=== PATIENT | male | born 1965 | race Asian ===

== ENCOUNTER 2019-12-31 20:29 | Inpatient (IN) | payer MEDICAID ==
[~2019-12-31] VITALS: Ht 170.2 cm; Wt 74.8 kg
--- NOTE | 2019-12-31 21:11 | Emergency Room Report ---
History of Present Illness General Chief Complaint: Fever Source: Patient, Medical Record Present Illness HPI This a 54-year-old male with a history of high blood pressure and CVA. He has residual weakness from the CVA. He resides in a shelter. He presents with complaint of fever with nausea and vomiting. Onset today. Patient denies any pain. Said that he has gas. Patient also history of high blood pressure was given hydralazine prior to arrival. No diarrhea. No cough or congestion. Allergies: Coded Allergies: No Known Allergies (Unverified , 12/31/19) Patient History Past Medical History: see triage record, old chart reviewed, HTN, CVA/TIA Past Surgical History: other Pertinent Family History: none Social History: Denies: smoking Immunizations: other Reviewed Nursing Documentation: PMH: Agreed; PSxH: Agreed Review of Systems Constitutional: Reports: fever Eye: Denies: eye pain, blurred vision ENT: Denies: ear pain, nose congestion, throat swelling Respiratory: Denies: cough, shortness of breath Cardiovascular: Denies: chest pain, palpitations Gastrointestinal: Reports: nausea, vomiting Musculoskeletal: Denies: back pain, joint pain Skin: Denies: rash Neurological: Denies: headache, numbness Endocrine: Denies: increased thirst, increased urine Hematologic/Lymphatic: Denies: easy bruising All Other Systems: negative except mentioned in HPI Physical Exam Vital Signs Date Time Temp Pulse Resp B/P (MAP) Pulse Ox O2 Delivery O2 Flow Rate FiO2 12/31/19 20:32 99.3 90 16 144/88 (106) 97 Nasal Cannula 2.0 Vitals with low-grade fever Sp02 EP Interpretation: reviewed, normal General Appearance: well appearing, no apparent distress, alert Head: normocephalic, atraumatic Eyes: bilateral eye PERRL, bilateral eye EOMI ENT: hearing grossly normal, normal pharynx Neck: full range of motion, supple, no meningismus Respiratory: chest non-tender, decreased breath sounds, rhonchi Cardiovascular #1: regular rate, rhythm, no murmur Gastrointestinal: non tender, no mass, no organomegaly, no bruit, other - Distended, decreased bowel sounds Musculoskeletal: back normal Neurologic: alert, other - Right-sided weakness, chronic Psychiatric: mood/affect normal Medical Decision Making Diagnostic Impression: Primary Impression: UTI (urinary tract infection) Qualified Codes: N30.00 - Acute cystitis without hematuria Additional Impression: Ureteral calculus, right ER Course This patient presents with fever and with nausea and vomiting. Labs show a leukocytosis. CT scan showed a right obstructing ureteral stone with hydronephrosis. Urinalysis showed possible UTI. Because of this, will admit for IV antibiotics and urology consultation. I discussed case with Dr. Moss was covering for Dr. Rodrigues. He asked that we paged urology basket person. When we try to call Dr. Sidhu for urology, answering service is full. I was asked then to contact Dr. Layton. EKG Diagnostic Results Rate: normal Rhythm: NSR ST Segments: no acute changes Rhythm Strip Diag. Results EP Interpretation: yes Rate: 85 Rhythm: NSR, no PVC's Chest X-Ray Diagnostic Results Chest X-Ray Diagnostic Results : Chest X-Ray Ordered: Yes # of Views/Limited/Complete: 1 View Indication: Shortness of Breath EP Interpretation: Yes Interpretation: no consolidation, no effusion, no pneumothorax, other - CM with atelectasis Impression: Other - atelectasis Electronically Signed by: Mir Mejia MD CT/MRI/US Diagnostic Results CT/MRI/US Diagnostic Results : Imaging Test Ordered: CT abdomen pelvis Impression Read by radiologist. Mild right hydronephrosis secondary to 9 mm stone in the proximal ureter. Last Vital Signs Date Time Temp Pulse Resp B/P (MAP) Pulse Ox O2 Delivery O2 Flow Rate FiO2 12/31/19 20:32 99.3 90 16 144/88 (106) 97 Nasal Cannula 2.0 Disposition: ADMITTED INPATIENT Condition: Serious Mir Mejia MD Dec 31, 2019 21:11
[2019-12-31] MEDS ORDERED: Sodium Chloride 2,200 ML IVLG ONE (21:15)
[2019-12-31 22:01] LABS: HEMATOCRIT 37.7 % (42.0-52.0); HEMOGLOBIN 11.7 G/DL (14.2-18.0); MEAN CORPUSCULAR VOLUME 62 FL (80-99); PLATELET COUNT 454 K/UL (150-450); RED BLOOD COUNT 6.07 M/UL (4.70-6.10); RED CELL DISTRIBUTION WIDTH 14.6 % (11.6-14.8); WHITE BLOOD COUNT 19.6 K/UL (4.8-10.8)
[2019-12-31 22:11] VITALS: BP 144/88
--- NOTE | 2019-12-31 22:11 | Diagnostic Imaging Report ---
Indication: Abdominal pain Technique: Spiral acquisitions obtained through the abdomen and pelvis. No oral or IV contrast utilized, per urinary stone protocol. Multiplanar reconstructions were generated. Total dose length product 422 mGycm. CTDIvol(s) 6 mGy. Dose reduction achieved using automated exposure control Comparison: none Findings: There is a 12 mm calculus at the right ureteral pelvic junction. This results in mild hydronephrosis and mild perinephric fat stranding. There is also a 3 mm calculus in an upper pole calyx. There are tiny calyceal calculi in the lower pole of left kidney. No left ureteral calculi, hydronephrosis, or hydroureter demonstrated. Lack of IV contrast limits assessment of the renal parenchyma. No gross renal parenchymal mass or cyst demonstrated. The bladder is normal. Unremarkable prostate. Lack of IV contrast limits assessment of the solid organs. The liver is diffusely hypoattenuating, consistent with fatty change. No focal abnormality. The gallbladder is nondistended. There are questionably one or more small gallstones. No biliary ductal dilatation. The pancreas, spleen, adrenals are unremarkable. No retroperitoneal or mesenteric mass or adenopathy. No pelvic mass or adenopathy. There is what appears to be a gastrostomy tube tract. The distal esophagus and duodenum are unremarkable. No small bowel distention. No free or loculated intraperitoneal gas or fluid is evident. No evidence of colonic diverticulosis or diverticulitis. The appendix is normal. The included lung bases demonstrate some atelectatic changes. The bones are unremarkable. Impression: Positive for 12 mm right proximal ureteral calculus. This results in mild hydronephrosis and mild perinephric fat stranding Bilateral nonobstructive intrarenal calculi Fatty liver Very questionable cholelithiasis Gastrostomy tube tract incidentally noted Basilar atelectasis This agrees with the preliminary interpretation provided overnight by [facility] teleradiology service, with minor variations. The CT scanner at [facility] is accredited by the [employer] and the scans are performed using protocols designed to limit radiation exposure to as low as reasonably achievable to attain images of sufficient resolution adequate for diagnostic evaluation.
[2019-12-31 22:14] LABS: ANION GAP 13 mmol/L (5-15); BLOOD UREA NITROGEN 23 mg/dL (7-18); CALCIUM 9.1 MG/DL (8.5-10.1); CARBON DIOXIDE 25 MMOL/L (21-32); CHLORIDE 105 MMOL/L (98-107); CREATININE 1.3 MG/DL (0.55-1.30); POTASSIUM 3.3 MMOL/L (3.5-5.1); SODIUM 143 MMOL/L (136-145)
[2019-12-31 22:27] LABS: APPEARANCE,URINE CLEAR; BILIRUBIN, URINE NEGATIVE (NEGATIVE); GLUCOSE, URINE (UA) NEGATIVE (NEGATIVE); KETONES,URINE NEGATIVE (NEGATIVE); LEUKOCYTE ESTERASE ,URINE 2+ (NEGATIVE); NITRITE,URINE NEGATIVE (NEGATIVE); PH,URINE 7 (4.5-8.0); PROTEIN,URINE 2+ (NEGATIVE); UROBILINOGEN,URINE 1 MG/DL (0.0-1.0)
[2019-12-31 22:28] LABS: ALANINE AMINOTRANSFERASE 65 U/L (12-78); ALBUMIN/GLOBULIN RATIO 0.6 (1.0-2.7); ALKALINE PHOSPHATASE 100 U/L (46-116); ASPARTATE AMINO TRANSFERASE 21 U/L (15-37); BILIRUBIN,TOTAL 1.5 MG/DL (0.2-1.0); CKMB < 0.5 NG/ML (0.0-3.6); CREATINE KINASE 19 U/L (26-308)
[2019-12-31 22:30] LABS: BILIRUBIN,DIRECT 0.4 MG/DL (0.0-0.3)
[2019-12-31 22:31] LABS: COLOR,URINE YELLOW
[2019-12-31] MEDS ORDERED: Cefepime HCl 1 GM in D5W 55 ML IVPB ONE (22:45)
[2019-12-31] MEDS ORDERED: BISACODYL5 MG RECTAL (23:16)
[2019-12-31] MEDS ORDERED: FLOMAX0.4 MG ORAL (23:16)
[2019-12-31] MEDS ORDERED: FERROUS SULFAT325 MG ORAL (23:16)
[2019-12-31] MEDS ORDERED: FISH OIL 1,0001 EAC1 ORAL (23:16)
[2020-01-01] MEDS ORDERED: HydrALAZINE 25mg tab ORAL PRN (00:15)
[2020-01-01] MEDS ORDERED: Morphine Sulfate 2mg/ml Inj(IV/IM USE ONLY) IVP PRN (00:15)
[2020-01-01] MEDS ORDERED: ALBUTEROL2.5 MG/3 M INH (00:16)
[2020-01-01] MEDS ORDERED: ASPIR 8181 MG ORAL (00:16)
[2020-01-01] MEDS ORDERED: ATORVASTATIN CA40 MG ORAL (00:17)
[2020-01-01] MEDS ORDERED: MIRALAX17 G2 ORAL (00:18)
[2020-01-01] MEDS ORDERED: MILK OF MA400 MG/51 ORAL (00:18)
[2020-01-01] MEDS ORDERED: CHILDREN'S160 MG/56 ORAL (00:22)
[2020-01-01] MEDS ORDERED: SENNA8.6 M2 PO (00:22)
[2020-01-01] MEDS ORDERED: PERIDEX15 ML MM (00:22)
[2020-01-01] MEDS ORDERED: TYLENOL325 MG ORAL (00:22)
[2020-01-01] MEDS ORDERED: PLAVIX75 MG ORAL (00:22)
[2020-01-01] MEDS ORDERED: PROTONIX40 MG ORAL (00:22)
[2020-01-01] MEDS ORDERED: ACETAMINOP160 MG/5 M ORAL (00:23)
[2020-01-01] MEDS ORDERED: ASCORBIC ACID500 MG ORAL (00:24)
[2020-01-01] MEDS ORDERED: ZOFRAN4 M3 ORAL (00:24)
[2020-01-01 00:42] VITALS: BP 133/80
[2020-01-01] MEDS ORDERED: cefTRIAXone 1 GM in D5W 55 ML IVPB SCH (01:45)
[2020-01-01 04:00] VITALS: BP 105/67
[2020-01-01 04:27] VITALS: BP 115/69
[2020-01-01] MEDS: cefTRIAXone 1 GM in D5W 55 ML IVPB SCH (08:17)
[2020-01-01] MEDS: Enoxaparin 40mg Inj SUBQ SCH (08:22)
--- NOTE | 2020-01-01 11:27 | Diagnostic Imaging Report ---
Indication: Shortness of breath Technique: One view of the chest Comparison: none Findings: There is equivocal mild interstitial congestive change. The heart is borderline enlarged. The aorta is tortuous and calcified. Impression: Equivocal mild interstitial congestion Borderline cardiomegaly
[2020-01-01 12:00] VITALS: BP 114/70
--- NOTE | 2020-01-01 14:20 | Infectious Diseases Prog Note ---
Subjective Allergies: Coded Allergies: No Known Allergies (Unverified , 12/31/19) Subjective # [id number] Objective Vital Signs Last 24 Hour Vital Signs Date Time Temp Pulse Resp B/P (MAP) Pulse Ox O2 Delivery O2 Flow Rate FiO2 01/01/20 12:00 99.4 97 24 114/70 (85) 96 01/01/20 09:00 Nasal Cannula 2.0 01/01/20 06:56 97.6 01/01/20 04:27 101.1 107 22 115/69 (84) 96 01/01/20 04:00 100.6 114 22 105/67 (80) 91 01/01/20 03:07 102.2 01/01/20 01:07 Nasal Cannula 2.0 01/01/20 00:42 104.0 104 20 133/80 (97) 95 01/01/20 00:35 99.3 87 18 137/87 100 Nasal Cannula 2.0 12/31/19 22:11 90 16 Nasal Cannula 2.0 12/31/19 22:11 99.3 90 16 144/88 97 Nasal Cannula 2.0 12/31/19 20:32 99.3 90 16 144/88 (106) 97 Nasal Cannula 2.0 Height (Feet): 5 Height (Inches): 7.00 Weight (Pounds): 163 Microbiology Date/Time Source Procedure Growth Status 12/31/19 21:30 Nasal Nares - Final Complete 12/31/19 21:30 Nasal Nares - Final Complete Laboratory Tests Test 12/31/19 21:30 12/31/19 22:02 White Blood Count 19.6 K/UL (4.8-10.8) H Red Blood Count 6.07 M/UL (4.70-6.10) Hemoglobin 11.7 G/DL (14.2-18.0) L Hematocrit 37.7 % (42.0-52.0) L Mean Corpuscular Volume 62 FL (80-99) L Mean Corpuscular Hemoglobin 19.3 PG (27.0-31.0) L Mean Corpuscular Hemoglobin Concent 31.0 G/DL (32.0-36.0) L Red Cell Distribution Width 14.6 % (11.6-14.8) Platelet Count 454 K/UL (150-450) H Mean Platelet Volume 8.3 FL (6.5-10.1) Neutrophils (%) (Auto) % (45.0-75.0) Lymphocytes (%) (Auto) % (20.0-45.0) Monocytes (%) (Auto) % (1.0-10.0) Eosinophils (%) (Auto) % (0.0-3.0) Basophils (%) (Auto) % (0.0-2.0) Differential Total Cells Counted 100 Neutrophils % (Manual) 80 % (45-75) H Lymphocytes % (Manual) 9 % (20-45) L Monocytes % (Manual) 5 % (1-10) Eosinophils % (Manual) 0 % (0-3) Basophils % (Manual) 1 % (0-2) Band Neutrophils 5 % (0-8) Platelet Estimate Increased H Platelet Morphology Normal Hypochromasia 1+ Anisocytosis 1+ Sodium Level 143 MMOL/L (136-145) Potassium Level 3.3 MMOL/L (3.5-5.1) L Chloride Level 105 MMOL/L (98-107) Carbon Dioxide Level 25 MMOL/L (21-32) Anion Gap 13 mmol/L (5-15) Blood Urea Nitrogen 23 mg/dL (7-18) H Creatinine 1.3 MG/DL (0.55-1.30) Estimat Glomerular Filtration Rate 57.1 mL/min (>60) Glucose Level 140 MG/DL (74-106) H Lactic Acid Level 1.10 mmol/L (0.4-2.0) Calcium Level 9.1 MG/DL (8.5-10.1) Total Bilirubin 1.5 MG/DL (0.2-1.0) H Direct Bilirubin 0.4 MG/DL (0.0-0.3) H Aspartate Amino Transf (AST/SGOT) 21 U/L (15-37) Alanine Aminotransferase (ALT/SGPT) 65 U/L (12-78) Alkaline Phosphatase 100 U/L (46-116) Total Creatine Kinase 19 U/L (26-308) L Creatine Kinase MB < 0.5 NG/ML (0.0-3.6) Creatine Kinase MB Relative Index 2.6 Troponin I 0.000 ng/mL (0.000-0.056) Total Protein 7.7 G/DL (6.4-8.2) Albumin 3.0 G/DL (3.4-5.0) L Globulin 4.7 g/dL Albumin/Globulin Ratio 0.6 (1.0-2.7) L Urine Color Yellow Urine Appearance Clear Urine pH 7 (4.5-8.0) Urine Specific [employer] 1.010 (1.005-1.035) Urine Protein 2+ (NEGATIVE) H Urine Glucose (UA) Negative (NEGATIVE) Urine Ketones Negative (NEGATIVE) Urine Blood 1+ (NEGATIVE) H Urine Nitrite Negative (NEGATIVE) Urine Bilirubin Negative (NEGATIVE) Urine Urobilinogen 1 MG/DL (0.0-1.0) H Urine Leukocyte Esterase 2+ (NEGATIVE) H Urine RBC 2-4 /HPF (0 - 0) H Urine WBC 5-10 /HPF (0 - 0) H Urine Squamous Epithelial Cells None /LPF (NONE/OCC) Urine Bacteria Few /HPF (NONE) Current Medications Medications (Trade) Dose Ordered Sig/Coy Route PRN Reason Start Time Stop Time Status Last Admin Dose Admin Acetaminophen (Tylenol) 650 mg Q4H PRN ORAL Mild Pain (Pain Scale 1-3) 01/01/20 00:15 01/31/20 00:14 Acetaminophen (Tylenol) 650 mg Q4H PRN ORAL Temp > 100.5 01/01/20 01:45 01/31/20 01:44 01/01/20 01:59 Bisacodyl (Dulcolax) 10 mg HSPRN PRN RECTAL Constipation 01/01/20 00:15 01/31/20 00:14 Ceftriaxone Sodium 1 gm/ Dextrose 55 ml @ 110 mls/hr Q24H IVPB 01/01/20 09:00 01/08/20 01:44 01/01/20 08:17 Dextrose (Dextrose 50%) 25 ml Q30M PRN IV Hypoglycemia 01/01/20 00:15 01/31/20 00:14 Dextrose (Dextrose 50%) 50 ml Q30M PRN IV Hypoglycemia 01/01/20 00:15 01/31/20 00:14 Enoxaparin Sodium (Lovenox) 40 mg DAILY SUBQ 01/01/20 09:00 01/31/20 08:59 01/01/20 08:22 Famotidine (Pepcid) 40 mg DAILY ORAL 01/01/20 09:00 01/31/20 08:59 Hydralazine HCl (Apresoline) 25 mg Q3HR PRN ORAL For High Blood Pressure 01/01/20 00:15 01/31/20 00:14 Morphine Sulfate (Morphine Sulfate) 1 mg Q3HR PRN IVP For Pain 01/01/20 00:15 01/08/20 00:14 Ondansetron HCl (Zofran) 4 mg Q6H PRN IVP Nausea & Vomiting 01/01/20 00:15 01/31/20 00:14 Sodium Chloride 1,000 ml @ 75 mls/hr [id number] IV 01/01/20 00:15 01/31/20 00:14 01/01/20 11:30 Mayur Womack MD Jan 01, 2020 14:20
[2020-01-01 16:00] VITALS: BP 120/73
--- NOTE | 2020-01-01 16:45 | History and Physical Report ---
DATE OF ADMISSION: 12/31/2019 REASON FOR ADMISSION: Nausea, vomiting. HISTORY OF PRESENT ILLNESS: The patient is a 54-year-old gentleman who presented from his [facility] facility for evaluation of nausea and vomiting with febrile episode. CT of the abdomen and pelvis did demonstrate 12 mm right proximal ureteral calculus, mid hydronephrosis with mild perinephric fat stranding, and also had bilateral nonobstructive intrarenal calculi. In the emergency room, Urology was consulted for further evaluation and management and the patient was initiated on IV antibiotics. ALLERGIES: No known drug allergies. PAST MEDICAL HISTORY: 1. Hypertension. 2. CVA. PAST SURGICAL HISTORY: Noncontributory. FAMILY HISTORY: Positive for hypertension SOCIAL HISTORY: No tobacco, alcohol, or illicit drug use. REVIEW OF SYSTEMS: NEUROLOGIC: The patient denies headache, change in vision, syncope, presyncopal episodes. CARDIOVASCULAR: No current chest pain, palpitations, angina. PULMONARY: No difficulty breathing, productive cough or sputum. GASTROINTESTINAL/GENITOURINARY: The patient is having nausea and vomiting. No diarrhea. ENDOCRINOLOGY: The patient was having night sweats and fevers. MUSCULOSKELETAL: The patient is feeling tired and fatigued. LABORATORY DATA: Labs dated 12/31/2019, white cell count 19.6, hemoglobin 11.7. Sodium 143, potassium 3.3, creatinine 1.3. PHYSICAL EXAMINATION: VITAL SIGNS: Blood pressure 115/69, respiratory 22, pulse 107, temperature 101.1, and 96% oxygen saturation on room air. GENERAL: The patient is awake, in no overt distress. HEENT: Extraocular muscles intact. No lymphadenopathy noted. CARDIOVASCULAR: S1, S2. No rubs or gallops. PULMONARY: Clear to auscultation bilaterally. No rales, rhonchi or wheezes. ABDOMEN: Nondistended and nontender. EXTREMITIES: No edema. ASSESSMENT AND PLAN: 1. Sepsis secondary to underlying urinary tract infection with a 12 mm right proximal ureteral calculus. This will intervened upon along with IV antibiotics. Infectious Disease and Neurology have been consulted. Awaiting further evaluation and management. 2. UTI. We will continue IV antibiotics until Infectious Disease suggest as deemed appropriate. The patient does have a 12 mm right proximal ureteral calculus causing mid hydronephrosis. 3. Right-sided mid hydroureteronephrosis. Urology to evaluate the patient. 4. Hypertension. We will continue to monitor the patient carefully. Adjust medications as deemed appropriate. 5. DVT prophylaxis with Lovenox. 6. GI prophylaxis with famotidine. Bird Nagy MD DR: BRIGITTE JOB#: [id number] CC:
[2020-01-01 20:00] VITALS: BP 99/64
--- NOTE | 2020-01-01 22:00 | Consultation ---
DATE OF CONSULTATION: 01/01/2020 INFECTIOUS DISEASE CONSULTATION CONSULTING PHYSICIAN: Mayur Womack M.D. REFERRING PHYSICIAN: . REASON FOR CONSULTATION: Evaluation of the patient for urinary tract infection, sepsis, antibiotic management. HISTORY OF PRESENT ILLNESS: The patient is a 54-year-old male with past medical significant for CVA and hypertension, who was admitted to this medical center from [facility] due to fever, nausea, and vomiting. Workup was suggesting urinary tract infection. Infectious Disease consultation has been requested for further evaluation of the patient and antibiotic management. PAST MEDICAL HISTORY: 1. CVA. 2. Hypertension. 3. History of esophageal ulcer. 4. BPH. 5. GERD. ALLERGIES: No known drug allergies. SOCIAL HISTORY: The patient lives in a intermediate. FAMILY HISTORY: Not contributing. REVIEW OF SYSTEMS: A 10-point was done, except what has been mentioned above is negative. MEDICATIONS: The patient is on IV Rocephin. PHYSICAL EXAMINATION: VITAL SIGNS: Temperature at the time of admission, blood pressure 114/78, pulse 97, respiratory rate 24. HEENT: No pale conjunctivae. No icterus. NECK: No lymphadenopathy. CHEST: Clear. HEART: S1, S2. ABDOMEN: Soft. The patient has right flank tenderness. NEUROLOGIC: Awake, alert. SKIN: No rash. LABORATORY DATA: White blood cell 19, hemoglobin 11, platelets 454,000. UA unremarkable. BUN 22, creatinine 1.3. AST, ALT, alkaline phosphatase unremarkable. CT scan of the abdomen showed right proximal ureteral calculus, mild hydronephrosis, mild perinephric fat stranding, bilateral nonobstructive intrarenal calculi, fatty liver. Chest x-ray, interstitial congestion and cardiomegaly. ASSESSMENT: The patient is a 54-year-old male with: 1. Fever. 2. Leukocytosis. 3. Probable UTI. 4. Pyelonephritis. 5. Renal stone. PLAN: 1. We will continue the patient on IV Rocephin day #1. 2. Monitor cultures (blood, urine). 3. Monitor CBC and BMP. 4. Monitor the patient's clinical course. 5. Recommend Urology evaluation. 6. Based on the above, we will do further recommendation. Mayur Womack M.D. DR: DOLORES JOB#: [id number] CC:
[2020-01-02] VITALS (14 sets, daily range): BP systolic 88–149; BP diastolic 50–80
[2020-01-02 07:07] LABS: HEMATOCRIT 30.4 % (42.0-52.0); HEMOGLOBIN 9.5 G/DL (14.2-18.0); MEAN CORPUSCULAR VOLUME 63 FL (80-99); PLATELET COUNT 305 K/UL (150-450); RED BLOOD COUNT 4.81 M/UL (4.70-6.10); RED CELL DISTRIBUTION WIDTH 12.3 % (11.6-14.8); WHITE BLOOD COUNT 18.2 K/UL (4.8-10.8)
[2020-01-02 07:35] LABS: ANION GAP 14 mmol/L (5-15); BLOOD UREA NITROGEN 25 mg/dL (7-18); CALCIUM 8.3 MG/DL (8.5-10.1); CARBON DIOXIDE 22 MMOL/L (21-32); CHLORIDE 110 MMOL/L (98-107); CREATININE 1.6 MG/DL (0.55-1.30); POTASSIUM 3.5 MMOL/L (3.5-5.1); SODIUM 146 MMOL/L (136-145)
[2020-01-02] MEDS: cefTRIAXone 1 GM in D5W 55 ML IVPB SCH (08:16)
[2020-01-02] MEDS: Enoxaparin 40mg Inj SUBQ SCH (08:21)
[2020-01-02] MEDS ORDERED: ceFAZolin sod 2 GM in D5W 110 ML IVPB SCH (08:30)
[2020-01-02] MEDS ORDERED: Iothalamate Meglumine 60% 50ML INJ ONE (08:50)
--- NOTE | 2020-01-02 08:52 | Nephrology Progress Note ---
Assessment/Plan Assessment/Plan: A/P 1) Sepsis- mid ureteral stone - lithotripsy today - continue Abx 2) CHELSEA on CKD 3B- due to sepsis - continue IVFs and Abx - lithotripsy today 3) HTN- stable, PRN hydralazine Subjective Date patient seen: Jan 02, 2020 Time patient seen: 08:47 ROS Limited/Unobtainable: No Allergies: Coded Allergies: No Known Allergies (Unverified , 12/31/19) Subjective Patient NPO for lithotripsy Objective Last 24 Hour Vital Signs Date Time Temp Pulse Resp B/P (MAP) Pulse Ox O2 Delivery O2 Flow Rate FiO2 01/02/20 04:00 100.2 93 24 118/73 (88) 96 01/02/20 00:00 99.9 85 24 149/80 (103) 96 01/01/20 21:00 Nasal Cannula 2.0 01/01/20 20:00 99.0 84 18 99/64 (76) 96 01/01/20 16:00 98.9 100 22 120/73 (89) 97 01/01/20 12:00 99.4 97 24 114/70 (85) 96 01/01/20 09:00 Nasal Cannula 2.0 Intake and Output 01/01/20 01/02/20 19:00 07:00 Intake Total 1680 ml 750 ml Output Total 800 ml Balance 880 ml 750 ml Intake Oral 800 ml IV Total 880 ml 750 ml Output Urine Total 800 ml # Voids 2 Laboratory Tests 01/02/20 06:07: White Blood Count 18.2H, Red Blood Count 4.81, Hemoglobin 9.5L, Hematocrit 30.4L , Mean Corpuscular Volume 63L, Mean Corpuscular Hemoglobin 19.7L, Mean Corpuscular Hemoglobin Concent 31.2L, Red Cell Distribution Width 12.3, Platelet Count 305, Mean Platelet Volume 7.8, Neutrophils (%) (Auto) , Lymphocytes (%) (Auto) , Monocytes (%) (Auto) , Eosinophils (%) (Auto) , Basophils (%) (Auto) , Neutrophils % (Manual) [Pending], Lymphocytes % (Manual) [Pending], Platelet Estimate [Pending], Platelet Morphology [Pending], Sodium Level 146H, Potassium Level 3.5, Chloride Level 110H, Carbon Dioxide Level 22, Anion Gap 14, Blood Urea Nitrogen 25H, Creatinine 1.6H, Estimat Glomerular Filtration Rate 44.9, Glucose Level 98, Calcium Level 8.3L Height (Feet): 5 Height (Inches): 7.00 Weight (Pounds): 162 General Appearance: no apparent distress, alert EENT: normal ENT inspection Neck: normal alignment Cardiovascular: normal rate, regular rhythm Respiratory/Chest: lungs clear, normal breath sounds Abdomen: non tender, soft Edema: no edema noted Arm (L), no edema noted Arm (R), no edema noted Leg (L), no edema noted Leg (R), no edema noted Pedal (L), no edema noted Pedal (R), no edema noted Generalized Bird Nagy MD Jan 02, 2020 08:52
--- NOTE | 2020-01-02 09:12 | Pre-Procedure Note/Attestation ---
Pre-Procedure Note/Attestation Complete Prior to Procedure Planned Procedure: right Procedure Narrative: eswl rirs right Indications for Procedure Pre-Operative Diagnosis: stone right upj Attestation I attest that I discussed the nature of the procedure; its benefits; risks and complications; and alternatives (and the risks and benefits of such alternatives ), prior to the procedure, with the patient (or the patient's legal consumer sales representative). I attest that, if there was a reasonable possibility of needing a blood transfusion, the patient (or the patient's legal consumer sales representative) was given the [facility] standardized written summary, pursuant to the [place]mkar Jan Blood Safety Act ([place] Health and Safety Code # 1645, as amended). I attest that I re-evaluated the patient just prior to the surgery and that there has been no change in the patient's H&P, except as documented below: Tom Sidhu MD Jan 02, 2020 09:12
[2020-01-02] MEDS ORDERED: NS Irrig 4000ml IRRIG ONE (09:13)
[2020-01-02] MEDS ORDERED: Rocuronium Bromide 50mg/5ml Inj IV ONE (09:30)
[2020-01-02] MEDS ORDERED: LR 1000ml ONE (09:30)
[2020-01-02] MEDS ORDERED: Sterile Water Irrig 1000ml IRRIG ONE (09:30)
[2020-01-02] MEDS ORDERED: NS Irrig 1000ml ONE (09:30)
[2020-01-02] MEDS ORDERED: LR 1000ml 1,000 ML IVLG SCH (09:33)
--- NOTE | 2020-01-02 09:38 | Anethesia Preoperative Eval ---
Anesthesia Pre-op PMH/ROS General Date of Evaluation: Jan 02, 2020 Time of Evaluation: 09:32 Anesthesiologist: Kash ASA Score: ASA 3 Mallampati Score Class I : Soft palate, uvula, fauces, pillars visible Class II: Soft palate, uvula, fauces visible Class III: Soft palate, base of uvula visible Class IV: Only hard plate visible Mallampati Classification: Class III Surgeon: Thea Diagnosis: Abd Pain Surgical Procedure: ESWL, R Stent Placement Anesthesia History: none Family History: no anesthesia problems Allergies: Coded Allergies: No Known Allergies (Unverified , 12/31/19) Medications: see eMAR Patient NPO?: Yes NPO Date: Jan 02, 2020 NPO Time: 1700 Past Medical History Cardiovascular: Reports: HTN Gastrointestinal/Genitourinary: Reports: GERD, other - BPH, GI Ulcer Neurologic/Psychiatric: Reports: CVA Hematology/Immune: Reports: anemia, DVT Anesthesia Pre-op Phys. Exam Physician Exam Last Vital Signs Date Time Temp Pulse Resp B/P (MAP) Pulse Ox O2 Delivery O2 Flow Rate FiO2 01/02/20 08:00 98.2 83 23 110/80 (90) 96 01/01/20 21:00 Nasal Cannula 2.0 Constitutional: NAD Neurologic: CN 2-12 intact Cardiovascular: RRR Respiratory: CTA Gastrointestinal: S/NT/ND Airway Exam Mallampati Score: Class III MO: limited ROM: limited Teeth: missing, intact Anesthesia Pre-op A/P Labs Hematology Test 01/02/20 06:07 White Blood Count 18.2 K/UL (4.8-10.8) H Red Blood Count 4.81 M/UL (4.70-6.10) Hemoglobin 9.5 G/DL (14.2-18.0) L Hematocrit 30.4 % (42.0-52.0) L Mean Corpuscular Volume 63 FL (80-99) L Mean Corpuscular Hemoglobin 19.7 PG (27.0-31.0) L Mean Corpuscular Hemoglobin Concent 31.2 G/DL (32.0-36.0) L Red Cell Distribution Width 12.3 % (11.6-14.8) Platelet Count 305 K/UL (150-450) Mean Platelet Volume 7.8 FL (6.5-10.1) Neutrophils (%) (Auto) % (45.0-75.0) Lymphocytes (%) (Auto) % (20.0-45.0) Monocytes (%) (Auto) % (1.0-10.0) Eosinophils (%) (Auto) % (0.0-3.0) Basophils (%) (Auto) % (0.0-2.0) Neutrophils % (Manual) Pending Lymphocytes % (Manual) Pending Platelet Estimate Pending Platelet Morphology Pending Chemistry Test 01/02/20 06:07 Sodium Level 146 MMOL/L (136-145) H Potassium Level 3.5 MMOL/L (3.5-5.1) Chloride Level 110 MMOL/L (98-107) H Carbon Dioxide Level 22 MMOL/L (21-32) Anion Gap 14 mmol/L (5-15) Blood Urea Nitrogen 25 mg/dL (7-18) H Creatinine 1.6 MG/DL (0.55-1.30) H Estimat Glomerular Filtration Rate 44.9 mL/min (>60) Glucose Level 98 MG/DL (74-106) Calcium Level 8.3 MG/DL (8.5-10.1) L Risk Assessment & Plan Assessment: ASA 3 Plan: GA, SED, GlideScope Status Change Before Surgery: No Pre-Antibiotics Dru Gram Ancef IV Given Within 1 Hr of Incision: Yes Oskar Hewitt MD Jan 02, 2020 09:38
[2020-01-02] MEDS ORDERED: Lidocaine 1% MPF 10mg/ml 5ml ONE (09:39)
[2020-01-02] MEDS ORDERED: Propofol 200mg/20ml IV ONE (09:39)
--- NOTE | 2020-01-02 09:39 | Immediate Post-Op Evaluation ---
Immediate Post-Op Evalulation Immediate Post-Op Evalulation Procedure: ESWL, R Stent Placement Date of Evaluation: Jan 02, 2020 Time of Evaluation: 11:24 IV Fluids: 300 LR Blood Products: 0 Estimated Blood Loss: 10 Urinary Output: 200 Blood Pressure Systolic: 92 Blood Pressure Diastolic: 57 Pulse Rate: 95 Respiratory Rate: 16 O2 Sat by Pulse Oximetry: 100 Temperature (Fahrenheit): 99.9 Pain Score (1-10): 2 Nausea: No Vomiting: No Complications 0 Patient Status: awake, reacts, patent, extubated, none Hydration Status: adequate Dru gram Ancef IV Given Within 1 Hr of Incision: Yes Time Given: 09:51 Oskar Hewitt MD Jan 02, 2020 09:39
--- NOTE | 2020-01-02 09:44 | Infectious Diseases Prog Note ---
Assessment/Plan Assessment/Plan ASSESSMENT: The patient is a 54-year-old male with: Fever. Leukocytosis. Probable UTI -CT scan of the abdomen showed right proximal ureteral calculus, mild hydronephrosis, mild perinephric fat stranding, bilateral nonobstructive intrarenal calculi, fatty liver. Chest x-ray, interstitial congestion and cardiomegaly. Pyelonephritis. Renal stone CVA. Hypertension. History of esophageal ulcer. BPH. GERD. PLAN: Cont the patient on IV Rocephin day #2 Monitor cultures (blood, urine) Monitor CBC and BMP. Monitor the patient's clinical course Subjective Allergies: Coded Allergies: No Known Allergies (Unverified , 12/31/19) Subjective low grade fever Objective Vital Signs Last 24 Hour Vital Signs Date Time Temp Pulse Resp B/P (MAP) Pulse Ox O2 Delivery O2 Flow Rate FiO2 01/02/20 08:00 98.2 83 23 110/80 (90) 96 01/02/20 04:00 100.2 93 24 118/73 (88) 96 01/02/20 00:00 99.9 85 24 149/80 (103) 96 01/01/20 21:00 Nasal Cannula 2.0 01/01/20 20:00 99.0 84 18 99/64 (76) 96 01/01/20 16:00 98.9 100 22 120/73 (89) 97 01/01/20 12:00 99.4 97 24 114/70 (85) 96 Height (Feet): 5 Height (Inches): 7.00 Weight (Pounds): 162 HEENT: PERRL Respiratory/Chest: normal breath sounds Cardiovascular: regular rhythm Abdomen: soft, non tender Microbiology Date/Time Source Procedure Growth Status 12/31/19 21:30 Blood Blood Culture - Preliminary NO GROWTH AFTER 24 HOURS Resulted 12/31/19 21:15 Blood Blood Culture - Preliminary NO GROWTH AFTER 24 HOURS Resulted 12/31/19 21:30 Nasal Nares - Final Complete 12/31/19 21:30 Nasal Nares - Final Complete Laboratory Tests Test 01/02/20 06:07 White Blood Count 18.2 K/UL (4.8-10.8) H Red Blood Count 4.81 M/UL (4.70-6.10) Hemoglobin 9.5 G/DL (14.2-18.0) L Hematocrit 30.4 % (42.0-52.0) L Mean Corpuscular Volume 63 FL (80-99) L Mean Corpuscular Hemoglobin 19.7 PG (27.0-31.0) L Mean Corpuscular Hemoglobin Concent 31.2 G/DL (32.0-36.0) L Red Cell Distribution Width 12.3 % (11.6-14.8) Platelet Count 305 K/UL (150-450) Mean Platelet Volume 7.8 FL (6.5-10.1) Neutrophils (%) (Auto) % (45.0-75.0) Lymphocytes (%) (Auto) % (20.0-45.0) Monocytes (%) (Auto) % (1.0-10.0) Eosinophils (%) (Auto) % (0.0-3.0) Basophils (%) (Auto) % (0.0-2.0) Neutrophils % (Manual) Pending Lymphocytes % (Manual) Pending Platelet Estimate Pending Platelet Morphology Pending Sodium Level 146 MMOL/L (136-145) H Potassium Level 3.5 MMOL/L (3.5-5.1) Chloride Level 110 MMOL/L (98-107) H Carbon Dioxide Level 22 MMOL/L (21-32) Anion Gap 14 mmol/L (5-15) Blood Urea Nitrogen 25 mg/dL (7-18) H Creatinine 1.6 MG/DL (0.55-1.30) H Estimat Glomerular Filtration Rate 44.9 mL/min (>60) Glucose Level 98 MG/DL (74-106) Calcium Level 8.3 MG/DL (8.5-10.1) L Current Medications Medications (Trade) Dose Ordered Sig/Coy Route PRN Reason Start Time Stop Time Status Last Admin Dose Admin Acetaminophen 100 ml @ 400 mls/hr NOW ONCE IV 01/02/20 09:45 01/02/20 09:59 Acetaminophen (Tylenol) 650 mg Q4H PRN ORAL Mild Pain (Pain Scale 1-3) 01/01/20 00:15 01/31/20 00:14 Acetaminophen (Tylenol) 650 mg Q4H PRN ORAL Temp > 100.5 01/01/20 01:45 01/31/20 01:44 01/01/20 01:59 Acetaminophen/ Hydrocodone Bitart ([place] 5/325) 1 tab Q1H PRN ORAL Mild Pain (Pain Scale 1-3) 01/02/20 09:45 01/02/20 18:00 Acetaminophen/ Hydrocodone Bitart ([place] 7.5/325) 1 tab Q1H PRN ORAL Moderate Pain (Pain Scale 4-6) 01/02/20 09:45 01/02/20 18:00 Al Hydroxide/Mg Hydroxide (Mylanta) 15 ml Q1H PRN ORAL gi upset 01/02/20 09:45 01/02/20 18:00 Atropine Sulfate (Atropine 0.4mg/ ml) 0.5 mg Q5M PRN IVP HR<40 01/02/20 09:45 01/02/20 18:00 Bisacodyl (Dulcolax) 10 mg HSPRN PRN RECTAL Constipation 01/01/20 00:15 01/31/20 00:14 Cefazolin Sodium 2 gm/Dextrose 110 ml @ 220 mls/hr ONCE IVPB 01/02/20 08:30 01/02/20 23:59 Ceftriaxone Sodium 1 gm/ Dextrose 55 ml @ 110 mls/hr Q24H IVPB 01/01/20 09:00 01/08/20 01:44 01/02/20 08:16 Dextrose (Dextrose 50%) 25 ml Q30M PRN IV Hypoglycemia 01/01/20 00:15 01/31/20 00:14 Dextrose (Dextrose 50%) 50 ml Q30M PRN IV Hypoglycemia 01/01/20 00:15 01/31/20 00:14 Diphenhydramine HCl (Benadryl) 25 mg Q15M PRN IVP Itching 01/02/20 09:45 01/02/20 18:00 Enoxaparin Sodium (Lovenox) 40 mg DAILY SUBQ 01/01/20 09:00 01/31/20 08:59 01/01/20 08:22 Famotidine (Pepcid) 40 mg DAILY ORAL 01/01/20 09:00 01/31/20 08:59 Fentanyl Citrate (Sublimaze 100 mcg/2 mL) 25 mcg Q10M PRN IV Moderate Pain (Pain Scale 4-6) 01/02/20 09:45 01/02/20 18:00 Hydralazine HCl (Apresoline) 5 mg Q30M PRN IV SBP>160 / DBP>90 01/02/20 09:45 01/02/20 18:00 Hydralazine HCl (Apresoline) 25 mg Q3HR PRN ORAL For High Blood Pressure 01/01/20 00:15 01/31/20 00:14 Hydromorphone HCl (Dilaudid) 0.5 mg Q15M PRN IVP Severe Pain (Pain Scale 7-10) 01/02/20 09:45 01/02/20 18:00 Labetalol HCl (Normodyne) 5 mg Q10M PRN IV SBP>160 / DBP>90 01/02/20 09:45 01/02/20 18:00 Lactated Ringer's 1,000 ml @ 10 mls/hr Q24H IVLG 01/02/20 09:33 01/02/20 11:32 Lorazepam (Ativan 2mg/ml 1ml) 1 mg Q15M PRN IV For Anxiety 01/02/20 09:45 01/02/20 18:00 Meperidine HCl (Demerol) 25 mg Q5M PRN IV SHIVERING.MAY REPEAT X 1 01/02/20 09:45 01/02/20 18:00 Metoclopramide HCl (Reglan) 10 mg Q1H PRN IVP Nausea & Vomiting 01/02/20 09:45 01/02/20 18:00 Midazolam HCl (Versed 2mg/2ml vial) 1 mg Q15M PRN IVP For Anxiety 01/02/20 09:45 01/02/20 18:00 Morphine Sulfate (Morphine Sulfate) 1 mg Q3HR PRN IVP For Pain 01/01/20 00:15 01/08/20 00:14 Ondansetron HCl (Zofran) 4 mg Q1H PRN IVP Nausea & Vomiting 01/02/20 09:45 01/02/20 18:00 Ondansetron HCl (Zofran) 4 mg Q6H PRN IVP Nausea & Vomiting 01/01/20 00:15 01/31/20 00:14 Oxycodone/ Acetaminophen (Percocet 5-325) 1 tab Q1H PRN ORAL Severe Pain (Pain Scale 7-10) 01/02/20 09:45 01/02/20 18:00 Sodium Chloride 1,000 ml @ 75 mls/hr [id number] IV 01/01/20 00:15 01/31/20 00:14 01/02/20 02:52 aMyur Womack MD Jan 02, 2020 09:44
[2020-01-02] MEDS ORDERED: Hydromorphone 0.5mg/0.5ml inj IVP PRN (09:45)
[2020-01-02] MEDS ORDERED: Meperidine 25mg/0.5ml Inj (FOR RIGORS ONLY) IV PRN (09:45)
[2020-01-02] MEDS ORDERED: Labetalol 5mg/ml 20ml vial IV PRN (09:45)
[2020-01-02] MEDS ORDERED: Atropine Sulfate 0.4mg/ml inj IVP PRN (09:45)
[2020-01-02] MEDS ORDERED: oxyCODONE HCL/Acetaminophen 5/325mg ORAL PRN (09:45)
[2020-01-02] MEDS ORDERED: fentaNYL 100 mcg/2 mL IV PRN (09:45)
[2020-01-02] MEDS ORDERED: LORazepam Inj 2mg/ml 1ml IV PRN (09:45)
[2020-01-02] MEDS ORDERED: HYDROcodone/Acetamin 7.5/325 tab ORAL PRN (09:45)
[2020-01-02] MEDS ORDERED: HYDROcodone/Acetamin 5/325 tab ORAL PRN (09:45)
[2020-01-02] MEDS ORDERED: DiphenhydrAMINE 50mg/ml Inj IVP PRN (09:45)
[2020-01-02] MEDS ORDERED: Midazolam 2mg/2ml Inj IVP PRN (09:45)
[2020-01-02] MEDS ORDERED: Acetaminophen (Non formulary) 100 ML IV ONE (09:45)
[2020-01-02] MEDS ORDERED: Metoclopramide 10mg/2ml Inj IVP PRN (09:45)
[2020-01-02] MEDS ORDERED: Dexamethasone 4mg/ml vial ONE (09:46)
[2020-01-02] MEDS ORDERED: Sodium Chloride 10ml vial INJ ONE (09:46)
[2020-01-02] MEDS ORDERED: fentaNYL 100 mcg/2 mL IV ONE (09:47)
[2020-01-02] MEDS ORDERED: Midazolam 2mg/2ml Inj ONE (09:47)
[2020-01-02] MEDS ORDERED: Metoprolol Tartrate 5mg/5ml Inj ONE (09:59)
--- NOTE | 2020-01-02 10:31 | Brief Operative Note ---
Immediate Post Operative Note Operative Note Pre-op Diagnosis: stone right upj Procedure: ESWL RIRS right stent placement Post-op Diagnosis: same Post-op Diagnosis: same as pre-op Surgeon: Kermit sidhu Anesthesia: general Specimen: none Complications: none Condition: stable Fluids: 1000 Estimated Blood Loss: minimal Implant(s) used?: No Tom Sidhu MD Jan 02, 2020 10:31
[2020-01-02] MEDS: D5 1/2NS w/KCl 20mEq 1,000 ML IV SCH (12:28)
[2020-01-03] VITALS (7 sets, daily range): BP systolic 114–129; BP diastolic 68–81
[2020-01-03] MEDS: D5 1/2NS w/KCl 20mEq 1,000 ML IV SCH ×2 (01:19→08:46)
--- NOTE | 2020-01-03 05:00 | Consultation ---
DATE OF CONSULTATION: 01/01/2020 INFECTIOUS DISEASE CONSULTATION CONSULTING PHYSICIAN: Mayur Womack M.D. REFERRING PHYSICIAN: . REASON FOR CONSULTATION: Evaluation of the patient for urinary tract infection, sepsis, antibiotic management. HISTORY OF PRESENT ILLNESS: The patient is a 54-year-old male with past medical significant for CVA and hypertension, who was admitted [facility] due to fever, nausea, and vomiting. Workup was suggesting urinary tract infection. Infectious Disease consultation has been requested for further evaluation of the patient and antibiotic management. PAST MEDICAL HISTORY: 1. CVA. 2. Hypertension. 3. History of esophageal ulcer. 4. BPH. 5. GERD. ALLERGIES: No known drug allergies. SOCIAL HISTORY: The patient lives in a [facility]. FAMILY HISTORY: Not contributing. REVIEW OF SYSTEMS: A 10-point was done, except what has been mentioned above is negative. MEDICATIONS: The patient is on IV Rocephin. PHYSICAL EXAMINATION: VITAL SIGNS: Temperature at the time of admission, blood pressure 114/78, pulse 97, respiratory rate 24. HEENT: No pale conjunctivae. No icterus. NECK: No lymphadenopathy. CHEST: Clear. HEART: S1, S2. ABDOMEN: Soft. The patient has right flank tenderness. NEUROLOGIC: Awake, alert. SKIN: No rash. LABORATORY DATA: White blood cell 19, hemoglobin 11, platelets 454,000. UA unremarkable. BUN 22, creatinine 1.3. AST, ALT, alkaline phosphatase unremarkable. CT scan of the abdomen showed right proximal ureteral calculus, mild hydronephrosis, mild perinephric fat stranding, bilateral nonobstructive intrarenal calculi, fatty liver. Chest x-ray, interstitial congestion and cardiomegaly. ASSESSMENT: The patient is a 54-year-old male with: 1. Fever. 2. Leukocytosis. 3. Probable UTI. 4. Pyelonephritis. 5. Renal stone. PLAN: 1. We will continue the patient on IV Rocephin day #1. 2. Monitor cultures (blood, urine). 3. Monitor CBC and BMP. 4. Monitor the patient's clinical course. 5. Recommend Urology evaluation. 6. Based on the above, we will do further recommendation. Mayur Womack M.D. DR: DOLORES JOB#: [id number] CC:
[2020-01-03 06:30] LABS: HEMATOCRIT 29.3 % (42.0-52.0); HEMOGLOBIN 9.1 G/DL (14.2-18.0); MEAN CORPUSCULAR VOLUME 63 FL (80-99); PLATELET COUNT 345 K/UL (150-450); RED BLOOD COUNT 4.62 M/UL (4.70-6.10); RED CELL DISTRIBUTION WIDTH 12.4 % (11.6-14.8); WHITE BLOOD COUNT 15.8 K/UL (4.8-10.8)
[2020-01-03 07:04] LABS: ANION GAP 12 mmol/L (5-15); BLOOD UREA NITROGEN 23 mg/dL (7-18); CALCIUM 8.5 MG/DL (8.5-10.1); CARBON DIOXIDE 23 MMOL/L (21-32); CHLORIDE 108 MMOL/L (98-107); CREATININE 1.1 MG/DL (0.55-1.30); POTASSIUM 3.9 MMOL/L (3.5-5.1); SODIUM 143 MMOL/L (136-145)
--- NOTE | 2020-01-03 07:52 | 48 Hour Post Anesthesia Eval ---
Post Anesthesia Evaluation Procedure: ESWL, R Stent Placement Date of Evaluation: Jan 03, 2020 Time of Evaluation: 07:51 Blood Pressure Systolic: 118 0: 74 Pulse Rate: 68 Respiratory Rate: 20 Temperature (Fahrenheit): 97.6 O2 Sat by Pulse Oximetry: 98 Airway: patent Nausea: No Vomiting: No Pain Intensity: 2 Hydration Status: adequate Cardiopulmonary Status: stable Mental Status/LOC: patient returned to baseline Follow-up Care/Observations: n/a Post-Anesthesia Complications: none Follow-up care needed: N/A Ray Maria MD Jan 03, 2020 07:52
[2020-01-03] MEDS: cefTRIAXone 1 GM in D5W 55 ML IVPB SCH (08:46)
--- NOTE | 2020-01-03 09:06 | Nephrology Progress Note ---
Assessment/Plan Assessment/Plan: A/P 1) Sepsis- mid ureteral stone - s/p RIRS right stent placement - continue Abx, WBC now improving 2) CHELSEA on CKD 3B- due to sepsis . Resolved, Cr down to 1.1 - continue Abx - DC IVFs 3) HTN- stable, PRN hydralazine Anticipate DC tomorrow Subjective Date patient seen: Jan 03, 2020 Time patient seen: 09:04 ROS Limited/Unobtainable: No Allergies: Coded Allergies: No Known Allergies (Unverified , 12/31/19) Subjective Patient feels much better. N/V resolved. Objective Last 24 Hour Vital Signs Date Time Temp Pulse Resp B/P (MAP) Pulse Ox O2 Delivery O2 Flow Rate FiO2 01/03/20 08:00 97.5 74 18 114/75 (88) 96 01/03/20 07:52 68 20 98 01/03/20 04:00 97.6 65 18 118/73 (88) 98 01/03/20 00:00 97.8 63 18 115/75 (88) 98 01/02/20 21:00 Nasal Cannula 2.0 01/02/20 20:00 97.4 74 20 119/68 (85) 99 01/02/20 16:00 97.8 72 16 101/64 (76) 98 01/02/20 12:30 99.4 91 14 104/66 (79) 94 01/02/20 12:05 98.2 90 23 89/56 100 Nasal Cannula 3 01/02/20 11:50 89 24 89/56 100 Nasal Cannula 3 01/02/20 11:35 84 26 89/56 100 Nasal Cannula 3 01/02/20 11:25 83 24 96/50 100 Simple Mask 6 01/02/20 11:15 88 24 88/53 100 Simple Mask 6 01/02/20 11:10 89 26 96/53 100 Simple Mask 6 01/02/20 11:09 95 16 100 01/02/20 11:06 99.9 95 25 92/57 100 Simple Mask 6 Intake and Output 01/02/20 01/03/20 19:00 07:00 Intake Total 1455 ml 2240 ml Output Total 410 ml 1000 ml Balance 1045 ml 1240 ml Intake Oral 240 ml IV Total 1455 ml 1600 ml Other 400 ml Output Urine Total 400 ml 1000 ml Estimated Blood Loss 10 ml # Voids 1 Laboratory Tests 01/03/20 06:05: White Blood Count 15.8H, Red Blood Count 4.62L, Hemoglobin 9.1L, Hematocrit 29.3L, Mean Corpuscular Volume 63L, Mean Corpuscular Hemoglobin 19.7L, Mean Corpuscular Hemoglobin Concent 31.1L, Red Cell Distribution Width 12.4, Platelet Count 345, Mean Platelet Volume 8.2, Neutrophils (%) (Auto) , Lymphocytes (%) (Auto) , Monocytes (%) (Auto) , Eosinophils (%) (Auto) , Basophils (%) (Auto) , Neutrophils % (Manual) [Pending], Lymphocytes % (Manual) [Pending], Platelet Estimate [Pending], Platelet Morphology [Pending], Sodium Level 143, Potassium Level 3.9, Chloride Level 108H, Carbon Dioxide Level 23, Anion Gap 12, Blood Urea Nitrogen 23H, Creatinine 1.1, Estimat Glomerular Filtration Rate > 60, Glucose Level 179H, Calcium Level 8.5 Height (Feet): 5 Height (Inches): 7.00 Weight (Pounds): 162 General Appearance: no apparent distress, alert EENT: normal ENT inspection Neck: normal alignment, supple Cardiovascular: normal rate, regular rhythm Respiratory/Chest: lungs clear, normal breath sounds Abdomen: non tender, soft Edema: no edema noted Arm (L), no edema noted Arm (R), no edema noted Leg (L), no edema noted Leg (R), no edema noted Pedal (L), no edema noted Pedal (R), no edema noted Generalized Bird Nagy MD Jan 03, 2020 09:06
[2020-01-03] MEDS: Enoxaparin 40mg Inj SUBQ SCH (09:20)
--- NOTE | 2020-01-03 12:40 | Infectious Diseases Prog Note ---
Assessment/Plan Assessment/Plan ASSESSMENT: The patient is a 54-year-old male with: +ve blood cx : CoNS ( ? contaminant) Fever, sp Leukocytosis, improvng Probable UTI -CT scan of the abdomen showed right proximal ureteral calculus, mild hydronephrosis, mild perinephric fat stranding, bilateral nonobstructive intrarenal calculi, fatty liver. Chest x-ray, interstitial congestion and cardiomegaly. Pyelonephritis. Renal stone - 01/01 Sp ESWL RIRS right stent placement CVA. Hypertension. History of esophageal ulcer. BPH. GERD. PLAN: Cont Zyvox # 2 Cont the patient on IV Rocephin day #3 Monitor cultures (blood, urine) Monitor CBC and BMP. Monitor the patient's clinical course Subjective Allergies: Coded Allergies: No Known Allergies (Unverified , 12/31/19) Subjective WBC improving fever improving SP ESWL RIRS right stent placement Objective Vital Signs Last 24 Hour Vital Signs Date Time Temp Pulse Resp B/P (MAP) Pulse Ox O2 Delivery O2 Flow Rate FiO2 01/03/20 12:00 98.0 72 19 127/70 (89) 92 01/03/20 09:00 Nasal Cannula 2.0 01/03/20 08:00 97.5 74 18 114/75 (88) 96 01/03/20 07:52 68 20 98 01/03/20 04:00 97.6 65 18 118/73 (88) 98 01/03/20 00:00 97.8 63 18 115/75 (88) 98 01/02/20 21:00 Nasal Cannula 2.0 01/02/20 20:00 97.4 74 20 119/68 (85) 99 01/02/20 16:00 97.8 72 16 101/64 (76) 98 Height (Feet): 5 Height (Inches): 7.00 Weight (Pounds): 162 HEENT: anicteric Respiratory/Chest: no respiratory distress Cardiovascular: regular rhythm Abdomen: non distended Microbiology Date/Time Source Procedure Growth Status 12/31/19 21:30 Blood Blood Culture - Preliminary Staphylococcus Sp Coag Neg Resulted 12/31/19 21:15 Blood Blood Culture - Preliminary Staphylococcus Sp Coag Neg Resulted 01/01/20 00:20 Nasal Nares MRSA Culture - Final NO METHICILLIN RESISTANT STAPH AUREUS... Complete 12/31/19 21:30 Nasal Nares - Final Complete 12/31/19 21:30 Nasal Nares - Final Complete 01/01/20 23:45 Urine,Clean Catch Urine Culture - Preliminary NO GROWTH Resulted 01/01/20 00:20 Rectum - Final NO CARBAPENEM-RESISTANT ENTEROBACTERI... Complete 01/01/20 00:20 Rectum VRE Culture - Final NO VANCOMYCIN RESISTANT ENTEROCOCCUS ... Complete Laboratory Tests Test 01/03/20 06:05 White Blood Count 15.8 K/UL (4.8-10.8) H Red Blood Count 4.62 M/UL (4.70-6.10) L Hemoglobin 9.1 G/DL (14.2-18.0) L Hematocrit 29.3 % (42.0-52.0) L Mean Corpuscular Volume 63 FL (80-99) L Mean Corpuscular Hemoglobin 19.7 PG (27.0-31.0) L Mean Corpuscular Hemoglobin Concent 31.1 G/DL (32.0-36.0) L Red Cell Distribution Width 12.4 % (11.6-14.8) Platelet Count 345 K/UL (150-450) Mean Platelet Volume 8.2 FL (6.5-10.1) Neutrophils (%) (Auto) % (45.0-75.0) Lymphocytes (%) (Auto) % (20.0-45.0) Monocytes (%) (Auto) % (1.0-10.0) Eosinophils (%) (Auto) % (0.0-3.0) Basophils (%) (Auto) % (0.0-2.0) Differential Total Cells Counted 100 Neutrophils % (Manual) 91 % (45-75) H Lymphocytes % (Manual) 5 % (20-45) L Monocytes % (Manual) 4 % (1-10) Eosinophils % (Manual) 0 % (0-3) Basophils % (Manual) 0 % (0-2) Band Neutrophils 0 % (0-8) Platelet Estimate Adequate Platelet Morphology Normal Hypochromasia 2+ Anisocytosis 1+ Microcytosis 3+ Sodium Level 143 MMOL/L (136-145) Potassium Level 3.9 MMOL/L (3.5-5.1) Chloride Level 108 MMOL/L (98-107) H Carbon Dioxide Level 23 MMOL/L (21-32) Anion Gap 12 mmol/L (5-15) Blood Urea Nitrogen 23 mg/dL (7-18) H Creatinine 1.1 MG/DL (0.55-1.30) Estimat Glomerular Filtration Rate > 60 mL/min (>60) Glucose Level 179 MG/DL (74-106) H Calcium Level 8.5 MG/DL (8.5-10.1) Current Medications Medications (Trade) Dose Ordered Sig/Coy Route PRN Reason Start Time Stop Time Status Last Admin Dose Admin Acetaminophen (Tylenol) 650 mg Q4H PRN ORAL Mild Pain (Pain Scale 1-3) 01/01/20 00:15 01/31/20 00:14 Acetaminophen (Tylenol) 650 mg Q4H PRN ORAL Temp > 100.5 01/01/20 01:45 01/31/20 01:44 01/01/20 01:59 Bisacodyl (Dulcolax) 10 mg HSPRN PRN RECTAL Constipation 01/01/20 00:15 01/31/20 00:14 Ceftriaxone Sodium 1 gm/ Dextrose 55 ml @ 110 mls/hr Q24H IVPB 01/01/20 09:00 01/08/20 01:44 01/03/20 08:46 Dextrose (Dextrose 50%) 25 ml Q30M PRN IV Hypoglycemia 01/01/20 00:15 01/31/20 00:14 Dextrose (Dextrose 50%) 50 ml Q30M PRN IV Hypoglycemia 01/01/20 00:15 01/31/20 00:14 Enoxaparin Sodium (Lovenox) 40 mg DAILY SUBQ 01/01/20 09:00 01/31/20 08:59 01/03/20 09:20 Famotidine (Pepcid) 40 mg DAILY ORAL 01/01/20 09:00 01/31/20 08:59 01/03/20 08:46 Hydralazine HCl (Apresoline) 25 mg Q3HR PRN ORAL For High Blood Pressure 01/01/20 00:15 01/31/20 00:14 Linezolid 300 ml @ 300 mls/hr Q12H IVPB 01/02/20 14:00 01/09/20 13:59 01/03/20 01:18 Morphine Sulfate (Morphine Sulfate) 1 mg Q3HR PRN IVP For Pain 01/01/20 00:15 01/08/20 00:14 Ondansetron HCl (Zofran) 4 mg Q6H PRN IVP Nausea & Vomiting 01/01/20 00:15 01/31/20 00:14 Mayur Womack MD Jan 03, 2020 12:40
--- NOTE | 2020-01-03 22:30 | Operative Note - Dictated ---
DATE OF OPERATION: 01/02/2020 PREOPERATIVE DIAGNOSIS: Obstructing 1 cm UPJ stone in the right kidney. POSTOPERATIVE DIAGNOSIS: Obstructing 1 cm UPJ stone in the right kidney. OPERATION: 1. Extracorporeal shock wave lithotripsy combined with retrograde intrarenal surgery with laser. 2. Double-J stent placement. 3. Retrograde pyelogram. SOMMELIER: Tom Sidhu M.D. ANESTHESIA: General. FINDINGS: Large stone embedded in the right UPJ. INDICATIONS FOR SURGERY: The patient was admitted to the hospital with urosepsis and obstructing stone that was found on CT urogram. Treatment options were explained to the patient in great length including all potential complications. He understands the nature of the procedure and signed the consent. DESCRIPTION OF SURGERY: He was brought to the operating room, placed in the lithotomy position. Prepped and draped in standard fashion. Under general anesthesia, cystoscope was introduced into the bladder. Guidewire was placed into the right kidney using a flexible ureteroscope. placed into the upper pole of the right kidney. Using 200 micron laser Holmium laser as well as extracorporeal shock wave lithotripsy with 2400 shocks at 9 kilovolts, stone was fragmented. A double-J stent, 26 x 6 was placed and left indwelling. Retrograde pyelogram performed. Sponge count, instrument count was correct. The patient tolerated the procedure well. No complications. Tom Sidhu M.D. DR: KYLIE JOB#: [id number] CC:
[2020-01-04 04:33] VITALS: BP 127/84
[2020-01-04 08:00] VITALS: BP 118/81
--- NOTE | 2020-01-04 08:40 | Nephrology Progress Note ---
Assessment/Plan Assessment/Plan: A/P 1) Sepsis- mid ureteral stone - s/p RIRS right stent placement - continue Abx, - WBC down to 16K and am labs pending 2) CHELSEA on CKD 3B- due to sepsis . Resolved, 1.1 - continue Abx 3) HTN- stable, PRN hydralazine Anticipate DC Tuesday back to [facility] Subjective Date patient seen: Jan 04, 2020 Time patient seen: 08:39 ROS Limited/Unobtainable: No Allergies: Coded Allergies: No Known Allergies (Unverified , 12/31/19) Subjective Patient feels much better. DC soon Objective Last 24 Hour Vital Signs Date Time Temp Pulse Resp B/P (MAP) Pulse Ox O2 Delivery O2 Flow Rate FiO2 01/04/20 04:33 97.8 66 20 127/84 (98) 95 01/03/20 23:48 97.6 70 18 127/68 (87) 95 01/03/20 21:30 97.4 01/03/20 20:26 97.4 75 18 122/72 (89) 94 01/03/20 20:10 Nasal Cannula 2.0 01/03/20 15:52 98.1 76 18 118/81 (93) 94 01/03/20 12:00 98.0 72 19 127/70 (89) 92 01/03/20 09:00 Nasal Cannula 2.0 Intake and Output 01/03/20 01/04/20 19:00 07:00 Intake Total 455 ml 900 ml Output Total 1700 ml Balance 455 ml -800 ml IV Total 455 ml 300 ml Other 600 ml Output Urine Total 1700 ml # Voids 1 Height (Feet): 5 Height (Inches): 7.00 Weight (Pounds): 162 General Appearance: no apparent distress, alert EENT: normal ENT inspection Neck: normal alignment, supple Cardiovascular: normal rate, regular rhythm Respiratory/Chest: lungs clear, normal breath sounds Abdomen: non tender, soft Edema: no edema noted Arm (L), no edema noted Arm (R), no edema noted Leg (L), no edema noted Leg (R), no edema noted Pedal (L), no edema noted Pedal (R), no edema noted Generalized Bird Nagy MD Jan 04, 2020 08:40
[2020-01-04] MEDS: cefTRIAXone 1 GM in D5W 55 ML IVPB SCH (09:21)
[2020-01-04] MEDS: Enoxaparin 40mg Inj SUBQ SCH (09:23)
--- NOTE | 2020-01-04 09:55 | Infectious Diseases Prog Note ---
Assessment/Plan Assessment/Plan ASSESSMENT: The patient is a 54-year-old male with: +ve blood cx : MRSA (? contaminant but obligated to Rx ) Fever, sp Leukocytosis, mild Probable UTI -CT scan of the abdomen showed right proximal ureteral calculus, mild hydronephrosis, mild perinephric fat stranding, bilateral nonobstructive intrarenal calculi, fatty liver. Chest x-ray, interstitial congestion and cardiomegaly. Pyelonephritis - Ucx : 10 k GNR ( delayed) Renal stone - 01/01 Sp ESWL RIRS right stent placement CVA. Hypertension. History of esophageal ulcer. BPH. GERD. PLAN: Cont Zyvox # 3 ( may swich back to IV Vanco if Cr remains nl) Cont the patient on IV Rocephin day #4 Monitor cultures (blood, urine) Monitor CBC and BMP. Monitor the patient's clinical course 2DEcho Subjective Allergies: Coded Allergies: No Known Allergies (Unverified , 12/31/19) Subjective BLOOD CX : MRSA Objective Vital Signs Last 24 Hour Vital Signs Date Time Temp Pulse Resp B/P (MAP) Pulse Ox O2 Delivery O2 Flow Rate FiO2 01/04/20 08:00 97.4 62 18 118/81 (93) 94 01/04/20 04:33 97.8 66 20 127/84 (98) 95 01/03/20 23:48 97.6 70 18 127/68 (87) 95 01/03/20 21:30 97.4 01/03/20 20:26 97.4 75 18 122/72 (89) 94 01/03/20 20:10 Nasal Cannula 2.0 01/03/20 15:52 98.1 76 18 118/81 (93) 94 01/03/20 12:00 98.0 72 19 127/70 (89) 92 Height (Feet): 5 Height (Inches): 7.00 Weight (Pounds): 162 Respiratory/Chest: normal breath sounds Cardiovascular: regular rhythm Abdomen: soft, non tender Microbiology Date/Time Source Procedure Growth Status 01/01/20 23:45 Urine,Clean Catch Urine Culture - Preliminary Gram Negative Bacillus 1 Resulted Current Medications Medications (Trade) Dose Ordered Sig/Coy Route PRN Reason Start Time Stop Time Status Last Admin Dose Admin Acetaminophen (Tylenol) 650 mg Q4H PRN ORAL Mild Pain (Pain Scale 1-3) 3/10/20 00:15 01/31/20 00:14 Acetaminophen (Tylenol) 650 mg Q4H PRN ORAL Temp > 100.5 01/01/20 01:45 01/31/20 01:44 01/01/20 01:59 Bisacodyl (Dulcolax) 10 mg HSPRN PRN RECTAL Constipation 01/01/20 00:15 01/31/20 00:14 Ceftriaxone Sodium 1 gm/ Dextrose 55 ml @ 110 mls/hr Q24H IVPB 01/01/20 09:00 01/08/20 01:44 01/04/20 09:21 Dextrose (Dextrose 50%) 25 ml Q30M PRN IV Hypoglycemia 01/01/20 00:15 01/31/20 00:14 Dextrose (Dextrose 50%) 50 ml Q30M PRN IV Hypoglycemia 01/01/20 00:15 01/31/20 00:14 Enoxaparin Sodium (Lovenox) 40 mg DAILY SUBQ 01/01/20 09:00 01/31/20 08:59 01/04/20 09:23 Famotidine (Pepcid) 40 mg DAILY ORAL 01/01/20 09:00 01/31/20 08:59 01/04/20 09:21 Hydralazine HCl (Apresoline) 25 mg Q3HR PRN ORAL For High Blood Pressure 01/01/20 00:15 01/31/20 00:14 Linezolid 300 ml @ 300 mls/hr Q12H IVPB 01/02/20 14:00 01/09/20 13:59 01/04/20 01:28 Morphine Sulfate (Morphine Sulfate) 1 mg Q3HR PRN IVP For Pain 01/01/20 00:15 01/08/20 00:14 01/03/20 21:00 Ondansetron HCl (Zofran) 4 mg Q6H PRN IVP Nausea & Vomiting 01/01/20 00:15 01/31/20 00:14 Mayur Womack MD Jan 04, 2020 09:55
[2020-01-04 12:00] VITALS: BP 121/83
[2020-01-04 16:00] VITALS: BP 133/68
[2020-01-04 19:48] VITALS: BP 131/74
[2020-01-04 23:53] VITALS: BP 149/70
[2020-01-05 04:00] VITALS: BP 118/78
--- NOTE | 2020-01-05 07:25 | Infectious Diseases Prog Note ---
Assessment/Plan Assessment/Plan ASSESSMENT: The patient is a 54-year-old male with: +ve blood cx : MRSA (? contaminant but obligated to Rx ) Fever, sp Leukocytosis, mild Probable UTI -CT scan of the abdomen showed right proximal ureteral calculus, mild hydronephrosis, mild perinephric fat stranding, bilateral nonobstructive intrarenal calculi, fatty liver. Chest x-ray, interstitial congestion and cardiomegaly. Pyelonephritis - Ucx : 10 k GNR ( delayed) Renal stone - 01/01 Sp ESWL RIRS right stent placement CVA. Hypertension. History of esophageal ulcer. BPH. GERD. PLAN: DC Zyvox # 4...start [facility] to dose Cont the patient on IV Rocephin day #5 Monitor cultures (blood, urine) Monitor CBC and BMP. Monitor the patient's clinical course 2DEcho discussed with RN Subjective Allergies: Coded Allergies: No Known Allergies (Unverified , 12/31/19) Subjective Afebrile. 2L NC. feels well Objective Vital Signs Last 24 Hour Vital Signs Date Time Temp Pulse Resp B/P (MAP) Pulse Ox O2 Delivery O2 Flow Rate FiO2 01/05/20 04:00 97.6 58 20 118/78 (91) 97 01/04/20 23:53 98.4 82 20 149/70 (96) 95 01/04/20 20:14 Nasal Cannula 2.0 01/04/20 19:48 98.0 63 20 131/74 (93) 95 01/04/20 16:00 98.1 62 17 133/68 (89) 94 01/04/20 12:00 97.6 80 19 121/83 (96) 95 01/04/20 09:00 Nasal Cannula 2.0 01/04/20 08:00 97.4 62 18 118/81 (93) 94 Height (Feet): 5 Height (Inches): 7.00 Weight (Pounds): 162 General Appearance: no acute distress HEENT: normocephalic Respiratory/Chest: no respiratory distress, no accessory muscle use Cardiovascular: normal rate, regular rhythm Abdomen: soft, non tender, no mass Current Medications Medications (Trade) Dose Ordered Sig/Coy Route PRN Reason Start Time Stop Time Status Last Admin Dose Admin Acetaminophen (Tylenol) 650 mg Q4H PRN ORAL Mild Pain (Pain Scale 1-3) 01/01/20 00:15 01/31/20 00:14 Acetaminophen (Tylenol) 650 mg Q4H PRN ORAL Temp > 100.5 01/01/20 01:45 01/31/20 01:44 01/01/20 01:59 Bisacodyl (Dulcolax) 10 mg HSPRN PRN RECTAL Constipation 01/01/20 00:15 01/31/20 00:14 Ceftriaxone Sodium 1 gm/ Dextrose 55 ml @ 110 mls/hr Q24H IVPB 01/01/20 09:00 01/08/20 01:44 01/04/20 09:21 Dextrose (Dextrose 50%) 25 ml Q30M PRN IV Hypoglycemia 01/01/20 00:15 01/31/20 00:14 Dextrose (Dextrose 50%) 50 ml Q30M PRN IV Hypoglycemia 01/01/20 00:15 01/31/20 00:14 Enoxaparin Sodium (Lovenox) 40 mg DAILY SUBQ 01/01/20 09:00 01/31/20 08:59 01/04/20 09:23 Famotidine (Pepcid) 40 mg DAILY ORAL 01/01/20 09:00 01/31/20 08:59 01/04/20 09:21 Hydralazine HCl (Apresoline) 25 mg Q3HR PRN ORAL For High Blood Pressure 01/01/20 00:15 01/31/20 00:14 Linezolid 300 ml @ 300 mls/hr Q12H IVPB 01/02/20 14:00 01/09/20 13:59 01/05/20 01:30 Morphine Sulfate (Morphine Sulfate) 1 mg Q3HR PRN IVP For Pain 01/01/20 00:15 01/08/20 00:14 01/03/20 21:00 Ondansetron HCl (Zofran) 4 mg Q6H PRN IVP Nausea & Vomiting 01/01/20 00:15 01/31/20 00:14 Bethany Silva MD Jan 05, 2020 07:25
[2020-01-05 08:00] VITALS: BP 150/69
[2020-01-05 08:27] LABS: BASOPHILS % (AUTO) 1.5 % (0.0-2.0); EOSINOPHILS % (AUTO) 4.9 % (0.0-3.0); HEMATOCRIT 34.2 % (42.0-52.0); HEMOGLOBIN 10.5 G/DL (14.2-18.0); LYMPHOCYTES % (AUTO) 23.1 % (20.0-45.0); MEAN CORPUSCULAR VOLUME 62 FL (80-99); MONOCYTES % (AUTO) 9.7 % (1.0-10.0); NEUTROPHILS % (AUTO) 60.7 % (45.0-75.0); PLATELET COUNT 512 K/UL (150-450); RED BLOOD COUNT 5.47 M/UL (4.70-6.10); RED CELL DISTRIBUTION WIDTH 12.5 % (11.6-14.8); WHITE BLOOD COUNT 7.5 K/UL (4.8-10.8)
[2020-01-05 08:56] LABS: ANION GAP 10 mmol/L (5-15); BLOOD UREA NITROGEN 15 mg/dL (7-18); CALCIUM 8.6 MG/DL (8.5-10.1); CARBON DIOXIDE 28 MMOL/L (21-32); CHLORIDE 107 MMOL/L (98-107); CREATININE 0.9 MG/DL (0.55-1.30); POTASSIUM 3.4 MMOL/L (3.5-5.1); SODIUM 145 MMOL/L (136-145)
[2020-01-05] MEDS: cefTRIAXone 1 GM in D5W 55 ML IVPB SCH (10:38)
[2020-01-05] MEDS: Enoxaparin 40mg Inj SUBQ SCH (10:41)
--- NOTE | 2020-01-05 11:05 | General Progress Note ---
Assessment/Plan Problem List: (1) CVA, old, speech/language deficit ICD Codes: I69.328 - Other speech and language deficits following cerebral infarction SNOMED: 804526923 (2) Sepsis ICD Codes: A41.9 - Sepsis, unspecified organism SNOMED: 78518818 (3) MRSA (methicillin resistant staph aureus) culture positive ICD Codes: Z22.322 - Carrier or suspected carrier of Methicillin resistant Staphylococcus aureus SNOMED: 744416058 (4) Pyelonephritis ICD Codes: N12 - Tubulo-interstitial nephritis, not specified as acute or chronic SNOMED: 69116885 (5) Ureteral calculus, right ICD Codes: N20.1 - Calculus of ureter SNOMED: 04386514 (6) UTI (urinary tract infection) ICD Codes: N39.0 - Urinary tract infection, site not specified SNOMED: 42314885 Qualifiers: Qualified Codes: N30.00 - Acute cystitis without hematuria (7) Gastrostomy infection ICD Codes: K94.22 - Gastrostomy infection SNOMED: 503797863 Assessment/Plan: [facility] still allred as per Subjective Constitutional: Reports: weakness HEENT: Reports: no symptoms Cardiovascular: Reports: no symptoms Respiratory: Reports: no symptoms Gastrointestinal/Abdominal: Reports: no symptoms Genitourinary: Reports: other - has allred clear urine Neurologic/Psychiatric: Reports: pre-existing deficit Endocrine: Reports: no symptoms Hematologic/Lymphatic: Reports: no symptoms Allergies: Coded Allergies: No Known Allergies (Unverified , 12/31/19) Objective Last 24 Hour Vital Signs Date Time Temp Pulse Resp B/P (MAP) Pulse Ox O2 Delivery O2 Flow Rate FiO2 01/05/20 04:00 97.6 58 20 118/78 (91) 97 01/04/20 23:53 98.4 82 20 149/70 (96) 95 01/04/20 20:14 Nasal Cannula 2.0 01/04/20 19:48 98.0 63 20 131/74 (93) 95 01/04/20 16:00 98.1 62 17 133/68 (89) 94 01/04/20 12:00 97.6 80 19 121/83 (96) 95 Intake and Output 01/04/20 01/05/20 19:00 07:00 Intake Total 1155 ml 300 ml Output Total 650 ml 1250 ml Balance 505 ml -950 ml IV Total 355 ml 300 ml Other 800 ml Output Urine Total 650 ml 1250 ml # Voids 2 Laboratory Tests 01/05/20 07:20: White Blood Count 7.5, Red Blood Count 5.47, Hemoglobin 10.5L, Hematocrit 34.2L , Mean Corpuscular Volume 62L, Mean Corpuscular Hemoglobin 19.2L, Mean Corpuscular Hemoglobin Concent 30.8L, Red Cell Distribution Width 12.5, Platelet Count 512H, Mean Platelet Volume 9.2, Neutrophils (%) (Auto) 60.7, Lymphocytes (%) (Auto) 23.1, Monocytes (%) (Auto) 9.7, Eosinophils (%) (Auto) 4.9H, Basophils (%) (Auto) 1.5, Sodium Level 145, Potassium Level 3.4L, Chloride Level 107, Carbon Dioxide Level 28, Anion Gap 10, Blood Urea Nitrogen 15, Creatinine 0.9, Estimat Glomerular Filtration Rate > 60, Glucose Level 91, Calcium Level 8.6 Height (Feet): 5 Height (Inches): 7.00 Weight (Pounds): 162 General Appearance: no apparent distress, alert EENT: normal ENT inspection Neck: non-tender Cardiovascular: normal rate, regular rhythm Respiratory/Chest: lungs clear Abdomen: non tender, soft Edema: no edema noted Arm (L), no edema noted Arm (R), no edema noted Leg (L), no edema noted Leg (R), no edema noted Pedal (L), no edema noted Pedal (R), no edema noted Generalized Neurologic: motor weakness, other - dysarthric Clayton Rodrigues MD Jan 05, 2020 11:05
[2020-01-05 12:00] VITALS: BP 144/65
[2020-01-05] MEDS: Vancomycin 1gm in D5W 275ml IVPB SCH ×2 (12:29→23:42)
[2020-01-05 16:00] VITALS: BP 139/63
[2020-01-05 20:00] VITALS: BP 147/65
[2020-01-06] VITALS: BP 138/68
[2020-01-06 04:00] VITALS: BP 125/81
[2020-01-06 08:00] VITALS: BP 125/88
[2020-01-06] MEDS: cefTRIAXone 1 GM in D5W 55 ML IVPB SCH (09:04)
[2020-01-06] MEDS: Enoxaparin 40mg Inj SUBQ SCH (09:07)
--- NOTE | 2020-01-06 10:52 | General Progress Note ---
Assessment/Plan Problem List: (1) CVA, old, speech/language deficit ICD Codes: I69.328 - Other speech and language deficits following cerebral infarction SNOMED: 746946405 (2) Sepsis ICD Codes: A41.9 - Sepsis, unspecified organism SNOMED: 54048776 (3) MRSA (methicillin resistant staph aureus) culture positive ICD Codes: Z22.322 - Carrier or suspected carrier of Methicillin resistant Staphylococcus aureus SNOMED: 389995932 (4) Pyelonephritis ICD Codes: N12 - Tubulo-interstitial nephritis, not specified as acute or chronic SNOMED: 44956005 (5) Ureteral calculus, right ICD Codes: N20.1 - Calculus of ureter SNOMED: 18928233 (6) UTI (urinary tract infection) ICD Codes: N39.0 - Urinary tract infection, site not specified SNOMED: 47802557 Qualifiers: Qualified Codes: N30.00 - Acute cystitis without hematuria (7) Gastrostomy infection ICD Codes: K94.22 - Gastrostomy infection SNOMED: 072483149 Assessment/Plan: needs iv atb [facility] still allred as per mrsa infection likely from GT site, possibly from uti Subjective Constitutional: Reports: weakness HEENT: Reports: no symptoms Cardiovascular: Reports: no symptoms Respiratory: Reports: no symptoms Genitourinary: Reports: other - allred Neurologic/Psychiatric: Reports: pre-existing deficit Endocrine: Reports: no symptoms Hematologic/Lymphatic: Reports: anemia Allergies: Coded Allergies: No Known Allergies (Unverified , 12/31/19) Objective Last 24 Hour Vital Signs Date Time Temp Pulse Resp B/P (MAP) Pulse Ox O2 Delivery O2 Flow Rate FiO2 01/06/20 08:00 98.2 73 17 125/88 (100) 96 01/06/20 04:00 98.0 55 20 125/81 (96) 95 01/06/20 00:00 98.0 69 19 138/68 (91) 96 01/05/20 22:32 Nasal Cannula 2.0 01/05/20 21:00 Nasal Cannula 2.0 01/05/20 20:00 98.2 66 19 147/65 (92) 94 01/05/20 16:00 97.6 67 17 139/63 (88) 95 01/05/20 12:00 97.5 59 17 144/65 (91) 94 Intake and Output 01/05/20 01/06/20 19:00 07:00 Intake Total 330.000 ml 800 ml Output Total 550 ml Balance 330.000 ml 250 ml IV Total 330.000 ml Other 800 ml Output Urine Total 550 ml # Voids 1 # Bowel Movements 1 Height (Feet): 5 Height (Inches): 7.00 Weight (Pounds): 162 General Appearance: no apparent distress, alert EENT: normal ENT inspection Neck: normal alignment Cardiovascular: regular rhythm Respiratory/Chest: lungs clear Abdomen: no organomegaly, other - clean dressing Edema: no edema noted Arm (L), no edema noted Arm (R), no edema noted Leg (L), no edema noted Leg (R), no edema noted Pedal (L), no edema noted Pedal (R), no edema noted Generalized Neurologic: motor weakness, aphasia Clayton Rodrigues MD Jan 06, 2020 10:52
[2020-01-06 11:57] LABS: BASOPHILS % (AUTO) 1.6 % (0.0-2.0); EOSINOPHILS % (AUTO) 5.3 % (0.0-3.0); HEMATOCRIT 36.5 % (42.0-52.0); HEMOGLOBIN 11.3 G/DL (14.2-18.0); LYMPHOCYTES % (AUTO) 24.7 % (20.0-45.0); MEAN CORPUSCULAR VOLUME 63 FL (80-99); MONOCYTES % (AUTO) 7.3 % (1.0-10.0); NEUTROPHILS % (AUTO) 61.2 % (45.0-75.0); PLATELET COUNT 551 K/UL (150-450); RED BLOOD COUNT 5.83 M/UL (4.70-6.10); RED CELL DISTRIBUTION WIDTH 12.3 % (11.6-14.8); WHITE BLOOD COUNT 7.9 K/UL (4.8-10.8)
[2020-01-06 12:00] VITALS: BP 115/78
[2020-01-06 12:07] LABS: % IRON SATURATION 40 % (15-50); IRON 95 ug/dL (50-175); TOTAL IRON BINDING CAPACITY 239 ug/dL (250-450)
[2020-01-06] MEDS: Vancomycin 1gm in D5W 275ml IVPB SCH ×2 (12:19→23:52)
[2020-01-06 12:29] LABS: FERRITIN 574 NG/ML (8-388)
[2020-01-06 16:00] VITALS: BP 137/75
[2020-01-06 20:00] VITALS: BP 116/77
[2020-01-06] MEDS: Iron Sucrose 100 MG in NS 55 ML IV SCH (21:58)
[2020-01-07] VITALS: BP 122/78
[2020-01-07 04:00] VITALS: BP_SYST 120; BP_SYST 128; BP_DIAS 70; BP_DIAS 72
--- NOTE | 2020-01-07 07:51 | General Progress Note ---
Assessment/Plan Problem List: (1) CVA, old, speech/language deficit ICD Codes: I69.328 - Other speech and language deficits following cerebral infarction SNOMED: 461985246 (2) Sepsis ICD Codes: A41.9 - Sepsis, unspecified organism SNOMED: 51143931 (3) MRSA (methicillin resistant staph aureus) culture positive ICD Codes: Z22.322 - Carrier or suspected carrier of Methicillin resistant Staphylococcus aureus SNOMED: 502715611 (4) Pyelonephritis ICD Codes: N12 - Tubulo-interstitial nephritis, not specified as acute or chronic SNOMED: 75743293 (5) Ureteral calculus, right ICD Codes: N20.1 - Calculus of ureter SNOMED: 65660974 (6) UTI (urinary tract infection) ICD Codes: N39.0 - Urinary tract infection, site not specified SNOMED: 75358834 Qualifiers: Qualified Codes: N30.00 - Acute cystitis without hematuria (7) Gastrostomy infection ICD Codes: K94.22 - Gastrostomy infection SNOMED: 994270189 Assessment/Plan: [facility]b at [facility] still allred as per mrsa infection likely from GT site, possibly from uti Subjective Constitutional: Reports: weakness HEENT: Reports: no symptoms Cardiovascular: Reports: no symptoms Respiratory: Reports: no symptoms Gastrointestinal/Abdominal: Reports: no symptoms Genitourinary: Reports: other - allred Neurologic/Psychiatric: Reports: pre-existing deficit Endocrine: Reports: no symptoms Hematologic/Lymphatic: Reports: anemia Allergies: Coded Allergies: No Known Allergies (Unverified , 12/31/19) Objective Last 24 Hour Vital Signs Date Time Temp Pulse Resp B/P (MAP) Pulse Ox O2 Delivery O2 Flow Rate FiO2 01/07/20 04:00 98.4 84 20 128/70 (89) 95 01/07/20 00:00 97.8 72 20 122/78 (93) 98 01/06/20 21:00 Nasal Cannula 2.0 01/06/20 20:00 98.0 64 19 116/77 (90) 98 01/06/20 16:00 98.5 72 19 137/75 (95) 100 01/06/20 12:00 98.5 88 19 115/78 (90) 95 01/06/20 09:00 Nasal Cannula 2.0 01/06/20 08:00 98.2 73 17 125/88 (100) 96 Intake and Output 01/06/20 01/07/20 19:00 07:00 Intake Total 1130.000 ml Output Total 800 ml 750 ml Balance 330.000 ml -750 ml IV Total 330.000 ml Other 800 ml Output Urine Total 800 ml 750 ml # Voids 1 # Bowel Movements 1 Laboratory Tests 01/06/20 11:45: White Blood Count 7.9, Red Blood Count 5.83, Hemoglobin 11.3L, Hematocrit 36.5L , Mean Corpuscular Volume 63L, Mean Corpuscular Hemoglobin 19.3L, Mean Corpuscular Hemoglobin Concent 30.9L, Red Cell Distribution Width 12.3, Platelet Count 551H, Mean Platelet Volume 6.9, Neutrophils (%) (Auto) 61.2, Lymphocytes (%) (Auto) 24.7, Monocytes (%) (Auto) 7.3, Eosinophils (%) (Auto) 5.3H, Basophils (%) (Auto) 1.6, Iron Level 95, Total Iron Binding Capacity 239L , Percent Iron Saturation 40, Unsaturated Iron Binding 144, Ferritin 574H Height (Feet): 5 Height (Inches): 7.00 Weight (Pounds): 162 General Appearance: no apparent distress, alert EENT: normal ENT inspection Neck: normal alignment Cardiovascular: normal rate, regular rhythm Respiratory/Chest: lungs clear Abdomen: non tender, soft Pelvis: other - dry dressing Edema: no edema noted Arm (L), no edema noted Arm (R), no edema noted Leg (L), no edema noted Leg (R), no edema noted Pedal (L), no edema noted Pedal (R), no edema noted Generalized Neurologic: motor weakness, aphasia Clayton Rodrigues MD Jan 07, 2020 07:51
[2020-01-07 08:00] VITALS: BP 132/94
[2020-01-07] MEDS: cefTRIAXone 1 GM in D5W 55 ML IVPB SCH (09:14)
[2020-01-07] MEDS: Enoxaparin 40mg Inj SUBQ SCH (09:16)
[2020-01-07 12:00] VITALS: BP 131/87
--- NOTE | 2020-01-07 12:06 | Infectious Diseases Prog Note ---
Assessment/Plan Assessment/Plan ASSESSMENT: The patient is a 54-year-old male with: +ve blood cx : MRSA (? contaminant but obligated to Rx ) Fever, sp Leukocytosis, mild Probable UTI -CT scan of the abdomen showed right proximal ureteral calculus, mild hydronephrosis, mild perinephric fat stranding, bilateral nonobstructive intrarenal calculi, fatty liver. Chest x-ray, interstitial congestion and cardiomegaly. Pyelonephritis - Ucx : 10 k GNR ( delayed) Renal stone - 01/01 Sp ESWL RIRS right stent placement CVA. Hypertension. History of esophageal ulcer. BPH. GERD. PLAN: vanc # pharmacy to dose ( end date: 01/17) DC V Rocephin day #7 01/05 Sp Zyvox # 4 Monitor cultures (blood, urine) Monitor CBC and BMP. Monitor the patient's clinical course 2DEcho discussed with RN Subjective Allergies: Coded Allergies: No Known Allergies (Unverified , 12/31/19) Subjective MRSA in the blood Objective Vital Signs Last 24 Hour Vital Signs Date Time Temp Pulse Resp B/P (MAP) Pulse Ox O2 Delivery O2 Flow Rate FiO2 01/07/20 08:00 97.7 70 19 132/94 (107) 96 01/07/20 04:00 98.4 84 20 128/70 (89) 95 01/07/20 00:00 97.8 72 20 122/78 (93) 98 01/06/20 21:00 Nasal Cannula 2.0 01/06/20 20:00 98.0 64 19 116/77 (90) 98 01/06/20 16:00 98.5 72 19 137/75 (95) 100 Height (Feet): 5 Height (Inches): 7.00 Weight (Pounds): 162 HEENT: anicteric Respiratory/Chest: no respiratory distress Cardiovascular: regularly irregular Abdomen: no organomegaly Current Medications Medications (Trade) Dose Ordered Sig/Coy Route PRN Reason Start Time Stop Time Status Last Admin Dose Admin Acetaminophen (Tylenol) 650 mg Q4H PRN ORAL Mild Pain (Pain Scale 1-3) 01/01/20 00:15 01/31/20 00:14 Acetaminophen (Tylenol) 650 mg Q4H PRN ORAL Temp > 100.5 01/01/20 01:45 01/31/20 01:44 01/01/20 01:59 Bisacodyl (Dulcolax) 10 mg HSPRN PRN RECTAL Constipation 01/01/20 00:15 01/31/20 00:14 01/05/20 21:02 Ceftriaxone Sodium 1 gm/ Dextrose 55 ml @ 110 mls/hr Q24H IVPB 01/01/20 09:00 01/08/20 01:44 01/07/20 09:14 Dextrose (Dextrose 50%) 25 ml Q30M PRN IV Hypoglycemia 01/01/20 00:15 01/31/20 00:14 Dextrose (Dextrose 50%) 50 ml Q30M PRN IV Hypoglycemia 01/01/20 00:15 01/31/20 00:14 Enoxaparin Sodium (Lovenox) 40 mg DAILY SUBQ 01/01/20 09:00 01/31/20 08:59 01/07/20 09:16 Famotidine (Pepcid) 40 mg DAILY ORAL 01/01/20 09:00 01/31/20 08:59 01/07/20 09:15 Hydralazine HCl (Apresoline) 25 mg Q3HR PRN ORAL For High Blood Pressure 01/01/20 00:15 01/31/20 00:14 Iron Sucrose 100 mg/Sodium Chloride 60 ml @ 240 mls/hr BEDTIME IV 01/06/20 21:00 01/10/20 21:14 01/06/20 21:58 Morphine Sulfate (Morphine Sulfate) 1 mg Q3HR PRN IVP For Pain 01/01/20 00:15 01/08/20 00:14 01/03/20 21:00 Ondansetron HCl (Zofran) 4 mg Q6H PRN IVP Nausea & Vomiting 01/01/20 00:15 01/31/20 00:14 Vancomycin HCl (Vanco rx to dose) 1 ea DAILY PRN MISC Per rx protocol 01/05/20 10:15 02/04/20 10:14 Vancomycin HCl 1 gm/Dextrose 275 ml @ 183.708 mls/hr Q12H IVPB 01/05/20 12:00 01/10/20 11:59 01/06/20 23:52 Mayur Womack MD Jan 07, 2020 12:06
[2020-01-07] MEDS: Vancomycin 1gm in D5W 275ml IVPB SCH (15:07)
[2020-01-07 16:00] VITALS: BP 131/90
[2020-01-07 20:00] VITALS: BP 121/81
[2020-01-07] MEDS: Iron Sucrose 100 MG in NS 55 ML IV SCH (21:02)
[2020-01-08] VITALS: BP 123/70
[2020-01-08] MEDS: Vancomycin 1gm in D5W 275ml IVPB SCH ×3 (00:08→23:08)
[2020-01-08 04:00] VITALS: BP 129/76
[2020-01-08 08:00] VITALS: BP 114/76
[2020-01-08] MEDS: Enoxaparin 40mg Inj SUBQ SCH (08:36)
--- NOTE | 2020-01-08 11:28 | Infectious Diseases Prog Note ---
Assessment/Plan Assessment/Plan ASSESSMENT: The patient is a 54-year-old male with: +ve blood cx : MRSA (? contaminant but obligated to Rx ) - 2cho : no Veg Fever, sp Leukocytosis, mild Probable UTI -CT scan of the abdomen showed right proximal ureteral calculus, mild hydronephrosis, mild perinephric fat stranding, bilateral nonobstructive intrarenal calculi, fatty liver. Chest x-ray, interstitial congestion and cardiomegaly. Pyelonephritis - Ucx : 10 k GNR ( delayed) Renal stone - 01/01 Sp ESWL RIRS right stent placement CVA. Hypertension. History of esophageal ulcer. BPH. GERD. PLAN: vanc # pharmacy to dose ( end date: 01/17) need Rpet blood cx on 02/06 discuss with RN 01/06 Sp IV Rocephin day #7 01/05 Sp Zyvox # 4 Monitor cultures (blood, urine) Monitor CBC and BMP. Monitor the patient's clinical course 2DEcho discussed with RN Subjective Allergies: Coded Allergies: No Known Allergies (Unverified , 12/31/19) Subjective DC planning discomfort due to [place] Objective Vital Signs Last 24 Hour Vital Signs Date Time Temp Pulse Resp B/P (MAP) Pulse Ox O2 Delivery O2 Flow Rate FiO2 01/08/20 08:14 Nasal Cannula 2.0 01/08/20 08:00 98.2 68 18 114/76 (89) 98 01/08/20 04:00 98.1 62 17 129/76 (93) 97 01/08/20 00:00 98.2 67 17 123/70 (87) 94 01/07/20 21:00 Nasal Cannula 2.0 01/07/20 20:00 98.1 65 18 121/81 (94) 96 01/07/20 16:00 98.1 89 19 131/90 (104) 96 01/07/20 12:00 98.4 81 20 131/87 (102) 96 Height (Feet): 5 Height (Inches): 7.00 Weight (Pounds): 162 Respiratory/Chest: normal breath sounds Cardiovascular: regularly irregular Abdomen: non distended Laboratory Tests Test 01/07/20 23:00 Vancomycin Level Trough 13.5 ug/mL (5.0-12.0) H Current Medications Medications (Trade) Dose Ordered Sig/Coy Route PRN Reason Start Time Stop Time Status Last Admin Dose Admin Acetaminophen (Tylenol) 650 mg Q4H PRN ORAL Mild Pain (Pain Scale 1-3) 01/01/20 00:15 01/31/20 00:14 Acetaminophen (Tylenol) 650 mg Q4H PRN ORAL Temp > 100.5 01/01/20 01:45 01/31/20 01:44 01/01/20 01:59 Bisacodyl (Dulcolax) 10 mg HSPRN PRN RECTAL Constipation 01/01/20 00:15 01/31/20 00:14 01/05/20 21:02 Dextrose (Dextrose 50%) 25 ml Q30M PRN IV Hypoglycemia 01/01/20 00:15 01/31/20 00:14 Dextrose (Dextrose 50%) 50 ml Q30M PRN IV Hypoglycemia 01/01/20 00:15 01/31/20 00:14 Enoxaparin Sodium (Lovenox) 40 mg DAILY SUBQ 01/01/20 09:00 01/31/20 08:59 01/08/20 08:36 Famotidine (Pepcid) 40 mg DAILY ORAL 01/01/20 09:00 01/31/20 08:59 01/08/20 08:35 Hydralazine HCl (Apresoline) 25 mg Q3HR PRN ORAL For High Blood Pressure 01/01/20 00:15 01/31/20 00:14 Iron Sucrose 100 mg/Sodium Chloride 60 ml @ 240 mls/hr BEDTIME IV 01/06/20 21:00 01/10/20 21:14 01/07/20 21:02 Ondansetron HCl (Zofran) 4 mg Q6H PRN IVP Nausea & Vomiting 01/01/20 00:15 01/31/20 00:14 Vancomycin HCl (Vanco rx to dose) 1 ea DAILY PRN MISC Per rx protocol 01/05/20 10:15 02/04/20 10:14 Vancomycin HCl 1.25 gm/Dextrose 275 ml @ 183.708 mls/hr Q12H IVPB 01/08/20 12:00 01/10/20 11:59 01/08/20 10:52 Mayur Womack MD Jan 08, 2020 11:28
[2020-01-08 12:00] VITALS: BP 116/72
--- NOTE | 2020-01-08 14:37 | General Progress Note ---
Assessment/Plan Problem List: (1) CVA, old, speech/language deficit ICD Codes: I69.328 - Other speech and language deficits following cerebral infarction SNOMED: 778162481 (2) Sepsis ICD Codes: A41.9 - Sepsis, unspecified organism SNOMED: 69660393 (3) MRSA (methicillin resistant staph aureus) culture positive ICD Codes: Z22.322 - Carrier or suspected carrier of Methicillin resistant Staphylococcus aureus SNOMED: 707140511 (4) Pyelonephritis ICD Codes: N12 - Tubulo-interstitial nephritis, not specified as acute or chronic SNOMED: 16819090 (5) Ureteral calculus, right ICD Codes: N20.1 - Calculus of ureter SNOMED: 82255431 (6) UTI (urinary tract infection) ICD Codes: N39.0 - Urinary tract infection, site not specified SNOMED: 73802433 Qualifiers: Qualified Codes: N30.00 - Acute cystitis without hematuria (7) Gastrostomy infection ICD Codes: K94.22 - Gastrostomy infection SNOMED: 864432360 Assessment/Plan: needs iv atb at [facility] call placed allred out as per mrsa infection likely from GT site, possibly from uti, d/ w ID Subjective Constitutional: Reports: weakness HEENT: Reports: no symptoms Cardiovascular: Reports: no symptoms Respiratory: Reports: no symptoms Gastrointestinal/Abdominal: Reports: no symptoms Genitourinary: Reports: no symptoms Neurologic/Psychiatric: Reports: pre-existing deficit Endocrine: Reports: no symptoms Hematologic/Lymphatic: Reports: anemia Allergies: Coded Allergies: No Known Allergies (Unverified , 12/31/19) Objective Last 24 Hour Vital Signs Date Time Temp Pulse Resp B/P (MAP) Pulse Ox O2 Delivery O2 Flow Rate FiO2 01/08/20 12:00 98.5 64 18 116/72 (87) 99 01/08/20 08:14 Nasal Cannula 2.0 01/08/20 08:00 98.2 68 18 114/76 (89) 98 01/08/20 04:00 98.1 62 17 129/76 (93) 97 01/08/20 00:00 98.2 67 17 123/70 (87) 94 01/07/20 21:00 Nasal Cannula 2.0 01/07/20 20:00 98.1 65 18 121/81 (94) 96 01/07/20 16:00 98.1 89 19 131/90 (104) 96 Intake and Output 01/07/20 01/08/20 19:00 07:00 Intake Total 360 ml 60 ml Balance 360 ml 60 ml Intake Oral 360 ml IV Total 60 ml Laboratory Tests 01/07/20 23:00: Vancomycin Level Trough 13.5H Height (Feet): 5 Height (Inches): 7.00 Weight (Pounds): 162 General Appearance: no apparent distress, alert EENT: normal ENT inspection Neck: normal alignment Cardiovascular: normal rate, regular rhythm Respiratory/Chest: lungs clear Abdomen: non tender, soft, other - dry dressing Edema: other - no edema Neurologic: alert, abnormal credit analysis manager II-XII, aphasia Clayton Rodrigues MD Jan 08, 2020 14:37
[2020-01-08 16:00] VITALS: BP 114/73
[2020-01-08] MEDS ORDERED: Heparin1,000 units/500ml Premix(Conc:2 units/ml) IV PRN (16:00)
[2020-01-08] MEDS ORDERED: Lidocaine 1% Plain 30 ml INJ PRN (16:00)
[2020-01-08 20:00] VITALS: BP 126/75
[2020-01-08] MEDS: Atorvastatin 20mg tab ORAL SCH (21:20)
[2020-01-09] VITALS: BP 126/75
[2020-01-09 04:00] VITALS: BP 128/61
[2020-01-09 08:00] VITALS: BP 130/79
[2020-01-09] MEDS: Enoxaparin 40mg Inj SUBQ SCH (08:24)
--- NOTE | 2020-01-09 09:14 | General Progress Note ---
Assessment/Plan Problem List: (1) CVA, old, speech/language deficit ICD Codes: I69.328 - Other speech and language deficits following cerebral infarction SNOMED: 016555822 (2) Sepsis ICD Codes: A41.9 - Sepsis, unspecified organism SNOMED: 14091599 (3) MRSA (methicillin resistant staph aureus) culture positive ICD Codes: Z22.322 - Carrier or suspected carrier of Methicillin resistant Staphylococcus aureus SNOMED: 885790854 (4) Pyelonephritis ICD Codes: N12 - Tubulo-interstitial nephritis, not specified as acute or chronic SNOMED: 70414834 (5) Ureteral calculus, right ICD Codes: N20.1 - Calculus of ureter SNOMED: 62240461 (6) UTI (urinary tract infection) ICD Codes: N39.0 - Urinary tract infection, site not specified SNOMED: 58598172 Qualifiers: Qualified Codes: N30.00 - Acute cystitis without hematuria (7) Gastrostomy infection ICD Codes: K94.22 - Gastrostomy infection SNOMED: 165957633 Assessment/Plan: needs iv atb at [facility] call placed allred out as per mrsa infection likely from GT site, possibly from uti, d/ w ID, needs picc Subjective Constitutional: Reports: no symptoms HEENT: Reports: no symptoms Cardiovascular: Reports: no symptoms Respiratory: Reports: no symptoms Gastrointestinal/Abdominal: Reports: no symptoms Genitourinary: Reports: no symptoms Neurologic/Psychiatric: Reports: pre-existing deficit Endocrine: Reports: no symptoms Hematologic/Lymphatic: Reports: anemia Allergies: Coded Allergies: No Known Allergies (Unverified , 12/31/19) Objective Last 24 Hour Vital Signs Date Time Temp Pulse Resp B/P (MAP) Pulse Ox O2 Delivery O2 Flow Rate FiO2 01/09/20 08:13 Nasal Cannula 2.0 01/09/20 08:00 98.2 63 18 130/79 (96) 94 01/09/20 04:00 97.5 68 16 128/61 (83) 99 01/09/20 00:00 97.9 61 18 126/75 (92) 98 01/08/20 21:00 Nasal Cannula 2.0 01/08/20 20:00 97.4 60 16 126/75 (92) 98 01/08/20 16:00 98.1 67 17 114/73 (87) 97 01/08/20 12:00 98.5 64 18 116/72 (87) 99 Intake and Output 01/08/20 01/09/20 19:00 07:00 Intake Total 500 ml Output Total 500 ml Balance 500 ml -500 ml Intake Oral 500 ml Output Urine Total 500 ml Stool Total 0 ml # Voids 3 Height (Feet): 5 Height (Inches): 7.00 Weight (Pounds): 165 General Appearance: no apparent distress, alert EENT: normal ENT inspection Neck: normal alignment Cardiovascular: normal rate Respiratory/Chest: lungs clear Abdomen: non tender, soft, other - gt site healing Extremities: normal inspection Neurologic: abnormal account review specialist II-XII, motor weakness, aphasia Clayton Rodrigues MD Jan 09, 2020 09:14
--- NOTE | 2020-01-09 10:13 | Infectious Diseases Prog Note ---
Assessment/Plan Assessment/Plan ASSESSMENT: The patient is a 54-year-old male with: +ve blood cx : MRSA (? contaminant but obligated to Rx ) - 2cho : no Veg Fever, sp Leukocytosis, mild Probable UTI -CT scan of the abdomen showed right proximal ureteral calculus, mild hydronephrosis, mild perinephric fat stranding, bilateral nonobstructive intrarenal calculi, fatty liver. Chest x-ray, interstitial congestion and cardiomegaly. Pyelonephritis - Ucx : 10 k GNR ( delayed) Renal stone - 01/01 Sp ESWL RIRS right stent placement CVA. Hypertension. History of esophageal ulcer. BPH. GERD. PLAN: vanc # pharmacy to dose ( end date: 01/17) need Rpet blood cx on 02/06 discuss with RN 01/06 Sp IV Rocephin day #7 01/05 Sp Zyvox # 4 Monitor cultures (blood, urine) Monitor CBC and BMP. Monitor the patient's clinical course 2DEcho discussed with PCP Subjective Allergies: Coded Allergies: No Known Allergies (Unverified , 12/31/19) Subjective no new complain , Objective Vital Signs Last 24 Hour Vital Signs Date Time Temp Pulse Resp B/P (MAP) Pulse Ox O2 Delivery O2 Flow Rate FiO2 01/09/20 08:13 Nasal Cannula 2.0 01/09/20 08:00 98.2 63 18 130/79 (96) 94 01/09/20 04:00 97.5 68 16 128/61 (83) 99 01/09/20 00:00 97.9 61 18 126/75 (92) 98 01/08/20 21:00 Nasal Cannula 2.0 01/08/20 20:00 97.4 60 16 126/75 (92) 98 01/08/20 16:00 98.1 67 17 114/73 (87) 97 01/08/20 12:00 98.5 64 18 116/72 (87) 99 Height (Feet): 5 Height (Inches): 7.00 Weight (Pounds): 165 HEENT: anicteric Respiratory/Chest: no accessory muscle use Cardiovascular: regularly irregular Abdomen: no organomegaly Current Medications Medications (Trade) Dose Ordered Sig/Coy Route PRN Reason Start Time Stop Time Status Last Admin Dose Admin Acetaminophen (Tylenol) 650 mg Q4H PRN ORAL Mild Pain (Pain Scale 1-3) 01/01/20 00:15 01/31/20 00:14 Acetaminophen (Tylenol) 650 mg Q4H PRN ORAL Temp > 100.5 01/01/20 01:45 01/31/20 01:44 01/01/20 01:59 Atorvastatin Calcium (Lipitor) 40 mg BEDTIME ORAL 01/08/20 21:00 04/07/20 20:59 01/08/20 21:20 Bisacodyl (Dulcolax) 10 mg HSPRN PRN RECTAL Constipation 01/01/20 00:15 01/31/20 00:14 01/05/20 21:02 Chlorhexidine Gluconate (Jayla-Hex 2%) 1 applic DAILY@2000 TOPIC 01/09/20 20:00 04/08/20 19:59 Clopidogrel Bisulfate (Plavix) 75 mg DAILY ORAL 01/08/20 15:00 02/07/20 14:59 01/09/20 08:24 Dextrose (Dextrose 50%) 25 ml Q30M PRN IV Hypoglycemia 01/01/20 00:15 01/31/20 00:14 Dextrose (Dextrose 50%) 50 ml Q30M PRN IV Hypoglycemia 01/01/20 00:15 01/31/20 00:14 Enoxaparin Sodium (Lovenox) 40 mg DAILY SUBQ 01/01/20 09:00 01/31/20 08:59 01/08/20 08:36 Famotidine (Pepcid) 40 mg DAILY ORAL 01/01/20 09:00 01/31/20 08:59 01/09/20 08:24 Fish Oil (Fish Oil) 1,000 mg BID ORAL 01/08/20 18:00 02/07/20 17:59 01/09/20 08:24 Heparin Sodium/ Sodium Chloride (Heparin 1000 units/500ml Premix) 1,000 unit ONCE PRN IV PICC PLACEMENT 01/08/20 16:00 01/10/20 23:59 Hydralazine HCl (Apresoline) 25 mg Q3HR PRN ORAL For High Blood Pressure 01/01/20 00:15 01/31/20 00:14 Lidocaine HCl (Xylocaine 1% 30ml) 30 ml ONCE PRN INJ PICC PLACEMENT 01/08/20 16:00 01/10/20 15:59 Ondansetron HCl (Zofran) 4 mg Q6H PRN IVP Nausea & Vomiting 01/01/20 00:15 01/31/20 00:14 Vancomycin HCl (Vanco rx to dose) 1 ea DAILY PRN MISC Per rx protocol 01/05/20 10:15 02/04/20 10:14 Vancomycin HCl 1.25 gm/Dextrose 275 ml @ 183.708 mls/hr Q12H IVPB 01/08/20 12:00 01/10/20 11:59 01/08/20 10:52 Mayur Womack MD Jan 09, 2020 10:13
[2020-01-09 12:00] VITALS: BP 116/57
[2020-01-09] MEDS ORDERED: NS 275ml ONE (14:09)
--- NOTE | 2020-01-09 15:23 | Diagnostic Imaging Report ---
Indication: watermelon harvesting supervisor venous access Findings: After the indications, procedure, risks, complications, and alternatives of the procedure were explained, written informed consent was obtained. The left upper extremity was prepped with alcohol. All elements of maximal sterile barrier technique were followed including usage of a cap, mask, sterile gown, sterile gloves, hand hygiene and a large sterile sheet. Sonographic evaluation of the upper extremity was performed demonstrating a patent and compressible brachial vein. Access was obtained under real-time ultrasound guidance (with utilization of sterile gel and sterile probe cover) and digital image was saved and archived. An .018 wire was introduced. Needle exchanged for a 5 [place] peel-away sheath. Measurements were obtained. A 5 [place] dual-lumen Power PICC line catheter was cut to 41 cm and introduced over the wire. Peel-away sheath and wire were removed.Catheter was secured to the skin using 2-0 Prolene suture. Both ports aspirate and flush easily. A single fluoroscopic image shows the distal tip in the superior vena cava. Total fluoroscopic time: 12.3 seconds. Impression: Successful placement of an upper extremity PICC line catheter
[2020-01-09 16:00] VITALS: BP 113/74
[2020-01-09] MEDS ORDERED: Vancomycin 1gm in D5W 275ml IVPB SCH (16:00)
[2020-01-09] MEDS: D5W IVPB SCH (16:52)
[2020-01-09] MEDS: VANCOMYCIN IVPB SCH (16:52)
[2020-01-09 20:00] VITALS: BP 128/72
[2020-01-09] MEDS: Atorvastatin 20mg tab ORAL SCH (20:10)
[2020-01-09] MEDS: Dyna-Hex 2% Top Sol 2oz TOPIC SCH (20:10)
[2020-01-10] VITALS: BP 122/85
[2020-01-10 04:00] VITALS: BP 116/73
[2020-01-10] MEDS ORDERED: D5W IVPB SCH (04:00)
[2020-01-10] MEDS ORDERED: VANCOMYCIN IVPB SCH (04:00)
[2020-01-10] MEDS: VANCOMYCIN IVPB SCH ×2 (04:02→15:47)
[2020-01-10] MEDS: D5W IVPB SCH ×2 (04:02→15:47)
[2020-01-10 08:00] VITALS: BP 126/82
--- NOTE | 2020-01-10 08:15 | General Progress Note ---
Assessment/Plan Problem List: (1) CVA, old, speech/language deficit ICD Codes: I69.328 - Other speech and language deficits following cerebral infarction SNOMED: 518415727 (2) Sepsis ICD Codes: A41.9 - Sepsis, unspecified organism SNOMED: 64804260 (3) MRSA (methicillin resistant staph aureus) culture positive ICD Codes: Z22.322 - Carrier or suspected carrier of Methicillin resistant Staphylococcus aureus SNOMED: 228209014 (4) Pyelonephritis ICD Codes: N12 - Tubulo-interstitial nephritis, not specified as acute or chronic SNOMED: 79086047 (5) Ureteral calculus, right ICD Codes: N20.1 - Calculus of ureter SNOMED: 39068221 (6) UTI (urinary tract infection) ICD Codes: N39.0 - Urinary tract infection, site not specified SNOMED: 30603440 Qualifiers: Qualified Codes: N30.00 - Acute cystitis without hematuria (7) Gastrostomy infection ICD Codes: K94.22 - Gastrostomy infection SNOMED: 346624926 Assessment/Plan: needs iv atb at [facility] call placed allred out as per mrsa infection likely from GT site, possibly from uti, d/ w ID, now has picc, on vanco Subjective Constitutional: Reports: weakness HEENT: Reports: no symptoms Cardiovascular: Reports: no symptoms Respiratory: Reports: no symptoms Gastrointestinal/Abdominal: Reports: no symptoms Genitourinary: Reports: no symptoms Neurologic/Psychiatric: Reports: pre-existing deficit Endocrine: Reports: no symptoms Hematologic/Lymphatic: Reports: anemia Allergies: Coded Allergies: No Known Allergies (Unverified , 12/31/19) Objective Last 24 Hour Vital Signs Date Time Temp Pulse Resp B/P (MAP) Pulse Ox O2 Delivery O2 Flow Rate FiO2 01/10/20 04:00 97.5 60 18 116/73 (87) 98 01/10/20 00:00 98.0 56 18 122/85 (97) 96 01/09/20 21:00 Room Air 01/09/20 20:00 98.6 69 18 128/72 (90) 98 01/09/20 16:00 98.6 74 18 113/74 (87) 99 01/09/20 12:00 98.7 67 17 116/57 (76) 97 Intake and Output 01/09/20 01/10/20 19:00 07:00 Intake Total 800 ml 723.708 ml Balance 800 ml 723.708 ml IV Total 183.708 ml Other 800 ml 540 ml # Voids 3 Height (Feet): 5 Height (Inches): 7.00 Weight (Pounds): 165 General Appearance: no apparent distress, alert EENT: normal ENT inspection Neck: normal alignment Cardiovascular: normal rate, regular rhythm Respiratory/Chest: lungs clear Abdomen: non tender, soft, other - dry dressing gt site Neurologic: abnormal director of people II-XII, motor weakness, aphasia Clayton Rodrigues MD Jan 10, 2020 08:15
[2020-01-10] MEDS: Enoxaparin 40mg Inj SUBQ SCH (08:34)
[2020-01-10 12:00] VITALS: BP 115/78
--- NOTE | 2020-01-10 14:34 | Infectious Diseases Prog Note ---
Assessment/Plan Assessment/Plan ASSESSMENT: The patient is a 54-year-old male with: +ve blood cx : MRSA (? contaminant but obligated to Rx ) - 2cho : no Veg Fever, sp Leukocytosis, mild Probable UTI -CT scan of the abdomen showed right proximal ureteral calculus, mild hydronephrosis, mild perinephric fat stranding, bilateral nonobstructive intrarenal calculi, fatty liver. Chest x-ray, interstitial congestion and cardiomegaly. Pyelonephritis - Ucx : 10 k GNR ( delayed) Renal stone - 01/01 Sp ESWL RIRS right stent placement CVA. Hypertension. History of esophageal ulcer. BPH. GERD. PLAN: vanc # pharmacy to dose ( end date: 01/17) need Rpet blood cx on 02/06 discuss with RN 01/06 Sp IV Rocephin day #7 01/05 Sp Zyvox # 4 Monitor cultures (blood, urine) Monitor CBC and BMP. Monitor the patient's clinical course discussed with PCP Subjective Allergies: Coded Allergies: No Known Allergies (Unverified , 12/31/19) Subjective no new complain , Objective Vital Signs Last 24 Hour Vital Signs Date Time Temp Pulse Resp B/P (MAP) Pulse Ox O2 Delivery O2 Flow Rate FiO2 01/10/20 12:00 97.2 78 18 115/78 (90) 96 01/10/20 09:00 Room Air 01/10/20 08:00 97.9 87 16 126/82 (97) 97 01/10/20 04:00 97.5 60 18 116/73 (87) 98 01/10/20 00:00 98.0 56 18 122/85 (97) 96 01/09/20 21:00 Room Air 01/09/20 20:00 98.6 69 18 128/72 (90) 98 01/09/20 16:00 98.6 74 18 113/74 (87) 99 Height (Feet): 5 Height (Inches): 7.00 Weight (Pounds): 165 HEENT: mucous membranes moist Respiratory/Chest: normal breath sounds Cardiovascular: regularly irregular Abdomen: no organomegaly Current Medications Medications (Trade) Dose Ordered Sig/Coy Route PRN Reason Start Time Stop Time Status Last Admin Dose Admin Acetaminophen (Tylenol) 650 mg Q4H PRN ORAL Mild Pain (Pain Scale 1-3) 01/01/20 00:15 01/31/20 00:14 Acetaminophen (Tylenol) 650 mg Q4H PRN ORAL Temp > 100.5 01/01/20 01:45 01/31/20 01:44 01/01/20 01:59 Atorvastatin Calcium (Lipitor) 40 mg BEDTIME ORAL 01/08/20 21:00 04/07/20 20:59 01/09/20 20:10 Bisacodyl (Dulcolax) 10 mg HSPRN PRN RECTAL Constipation 01/01/20 00:15 01/31/20 00:14 01/05/20 21:02 Chlorhexidine Gluconate (Jayla-Hex 2%) 1 applic DAILY@2000 TOPIC 01/09/20 20:00 04/08/20 19:59 01/09/20 20:10 Clopidogrel Bisulfate (Plavix) 75 mg DAILY ORAL 01/08/20 15:00 02/07/20 14:59 01/10/20 08:33 Dextrose (Dextrose 50%) 25 ml Q30M PRN IV Hypoglycemia 01/01/20 00:15 01/31/20 00:14 Dextrose (Dextrose 50%) 50 ml Q30M PRN IV Hypoglycemia 01/01/20 00:15 01/31/20 00:14 Enoxaparin Sodium (Lovenox) 40 mg DAILY SUBQ 01/01/20 09:00 01/31/20 08:59 01/10/20 08:34 Famotidine (Pepcid) 40 mg DAILY ORAL 01/01/20 09:00 01/31/20 08:59 01/10/20 08:33 Fish Oil (Fish Oil) 1,000 mg BID ORAL 01/08/20 18:00 02/07/20 17:59 01/10/20 08:33 Heparin Sodium/ Sodium Chloride (Heparin 1000 units/500ml Premix) 1,000 unit ONCE PRN IV PICC PLACEMENT 01/08/20 16:00 01/10/20 23:59 Hydralazine HCl (Apresoline) 25 mg Q3HR PRN ORAL For High Blood Pressure 01/01/20 00:15 01/31/20 00:14 Lidocaine HCl (Xylocaine 1% 30ml) 30 ml ONCE PRN INJ PICC PLACEMENT 01/08/20 16:00 01/10/20 15:59 Ondansetron HCl (Zofran) 4 mg Q6H PRN IVP Nausea & Vomiting 01/01/20 00:15 01/31/20 00:14 Vancomycin HCl (Vanco rx to dose) 1 ea DAILY PRN MISC Per rx protocol 01/05/20 10:15 02/04/20 10:14 Vancomycin HCl 1.25 gm/Dextrose 275 ml @ 183.708 mls/hr Q12HR@0400,1600 IVPB 01/09/20 16:00 01/14/20 15:59 01/10/20 04:02 Mayur Womack MD Jan 10, 2020 14:34
[2020-01-10 16:00] VITALS: BP 122/79
[2020-01-10 20:00] VITALS: BP 120/91
[2020-01-10] MEDS: Atorvastatin 20mg tab ORAL SCH (20:13)
[2020-01-10] MEDS: Dyna-Hex 2% Top Sol 2oz TOPIC SCH (20:13)
[2020-01-11] VITALS: BP 110/76
[2020-01-11 03:42] LABS: ANION GAP 8 mmol/L (5-15); BLOOD UREA NITROGEN 24 mg/dL (7-18); CARBON DIOXIDE 28 MMOL/L (21-32); CHLORIDE 113 MMOL/L (98-107); CREATININE 0.9 MG/DL (0.55-1.30); POTASSIUM 3.7 MMOL/L (3.5-5.1); SODIUM 149 MMOL/L (136-145)
[2020-01-11 04:00] VITALS: BP 132/76
[2020-01-11] MEDS: D5W IVPB SCH (04:33)
[2020-01-11] MEDS: VANCOMYCIN IVPB SCH (04:33)
[2020-01-11 08:00] VITALS: BP 118/80
[2020-01-11] MEDS: Enoxaparin 40mg Inj SUBQ SCH (09:20)
--- NOTE | 2020-01-11 11:00 | Infectious Diseases Prog Note ---
Assessment/Plan Assessment/Plan ASSESSMENT: The patient is a 54-year-old male with: +ve blood cx : MRSA (? contaminant but obligated to Rx ) - 2cho : no Veg Fever, sp Leukocytosis, mild Probable UTI -CT scan of the abdomen showed right proximal ureteral calculus, mild hydronephrosis, mild perinephric fat stranding, bilateral nonobstructive intrarenal calculi, fatty liver. Chest x-ray, interstitial congestion and cardiomegaly. Pyelonephritis - Ucx : 10 k GNR ( delayed) Renal stone - 01/01 Sp ESWL RIRS right stent placement CVA. Hypertension. History of esophageal ulcer. BPH. GERD. PLAN: vanc # 05/06 pharmacy to dose ( end date: 01/17) need Rpet blood cx on 02/06 discuss with RN 01/06 Sp IV Rocephin day #7 01/05 Sp Zyvox # 4 Monitor cultures (blood, urine) Monitor CBC and BMP. Monitor the patient's clinical course discussed with PCP Subjective Allergies: Coded Allergies: No Known Allergies (Unverified , 12/31/19) Subjective comfortable Objective Vital Signs Last 24 Hour Vital Signs Date Time Temp Pulse Resp B/P (MAP) Pulse Ox O2 Delivery O2 Flow Rate FiO2 01/11/20 09:00 Room Air 01/11/20 08:00 97.7 67 20 118/80 (93) 98 01/11/20 04:00 97.8 62 22 132/76 (94) 94 01/11/20 00:00 98.0 61 20 110/76 (87) 98 01/10/20 21:00 Room Air 01/10/20 20:00 97.8 72 20 120/91 (101) 96 01/10/20 16:00 97.9 62 18 122/79 (93) 98 01/10/20 12:00 97.2 78 18 115/78 (90) 96 Height (Feet): 5 Height (Inches): 7.00 Weight (Pounds): 165 HEENT: anicteric Respiratory/Chest: normal breath sounds Cardiovascular: regular rhythm Abdomen: no organomegaly Laboratory Tests Test 01/11/20 03:20 Sodium Level 149 MMOL/L (136-145) H Potassium Level 3.7 MMOL/L (3.5-5.1) Chloride Level 113 MMOL/L (98-107) H Carbon Dioxide Level 28 MMOL/L (21-32) Anion Gap 8 mmol/L (5-15) Blood Urea Nitrogen 24 mg/dL (7-18) H Creatinine 0.9 MG/DL (0.55-1.30) Estimat Glomerular Filtration Rate > 60 mL/min (>60) Glucose Level 106 MG/DL (74-106) Calcium Level 9.0 MG/DL (8.5-10.1) Vancomycin Level Trough 17.7 ug/mL (5.0-12.0) H Current Medications Medications (Trade) Dose Ordered Sig/Coy Route PRN Reason Start Time Stop Time Status Last Admin Dose Admin Acetaminophen (Tylenol) 650 mg Q4H PRN ORAL Mild Pain (Pain Scale 1-3) 01/01/20 00:15 01/31/20 00:14 Acetaminophen (Tylenol) 650 mg Q4H PRN ORAL Temp > 100.5 01/01/20 01:45 01/31/20 01:44 01/01/20 01:59 Atorvastatin Calcium (Lipitor) 40 mg BEDTIME ORAL 01/08/20 21:00 04/07/20 20:59 01/10/20 20:13 Bisacodyl (Dulcolax) 10 mg HSPRN PRN RECTAL Constipation 01/01/20 00:15 01/31/20 00:14 01/05/20 21:02 Chlorhexidine Gluconate (Jayla-Hex 2%) 1 applic DAILY@2000 TOPIC 01/09/20 20:00 04/08/20 19:59 01/10/20 20:13 Clopidogrel Bisulfate (Plavix) 75 mg DAILY ORAL 01/08/20 15:00 02/07/20 14:59 01/11/20 09:14 Dextrose (Dextrose 50%) 25 ml Q30M PRN IV Hypoglycemia 01/01/20 00:15 01/31/20 00:14 Dextrose (Dextrose 50%) 50 ml Q30M PRN IV Hypoglycemia 01/01/20 00:15 01/31/20 00:14 Enoxaparin Sodium (Lovenox) 40 mg DAILY SUBQ 01/01/20 09:00 01/31/20 08:59 01/11/20 09:20 Famotidine (Pepcid) 40 mg DAILY ORAL 01/01/20 09:00 01/31/20 08:59 01/11/20 09:14 Fish Oil (Fish Oil) 1,000 mg BID ORAL 01/08/20 18:00 02/07/20 17:59 01/11/20 09:14 Hydralazine HCl (Apresoline) 25 mg Q3HR PRN ORAL For High Blood Pressure 01/01/20 00:15 01/31/20 00:14 Ondansetron HCl (Zofran) 4 mg Q6H PRN IVP Nausea & Vomiting 01/01/20 00:15 01/31/20 00:14 Vancomycin HCl (Vanco rx to dose) 1 ea DAILY PRN MISC Per rx protocol 01/05/20 10:15 02/04/20 10:14 Vancomycin HCl 1.25 gm/Dextrose 275 ml @ 183.708 mls/hr Q12HR@0400,1600 IVPB 01/09/20 16:00 01/14/20 15:59 01/11/20 04:33 Mayur Womack MD Jan 11, 2020 11:00
[2020-01-11 12:00] VITALS: BP 115/82
[2020-01-11] MEDS ORDERED: VANCOMYCIN750 MG/150 IV (14:09)
[2020-01-11] MEDS ORDERED: NS 275ml ONE (14:29)
--- NOTE | 2020-01-11 22:30 | Discharge Summary ---
DATE OF ADMISSION: 12/31/2019 DATE OF DISCHARGE: 01/11/2020 PERTINENT HISTORY: The patient is a 54-year-old man with a history of prior CVA, who presents with nausea and vomiting. CT of the abdomen and pelvis showed a 12 mm right proximal ureteral calculus and mild hydronephrosis. The patient has history of a prior gastrostomy tube that is removed. PERTINENT PHYSICAL FINDINGS: VITAL SIGNS: He had temperature of 101.1. HEENT: Oral mucosa moist. HEART: Regular rhythm. LUNGS: Clear. ABDOMEN: Nondistended and nontender. There is still minimal inflammation around the gastrostomy exit site. COURSE IN THE HOSPITAL: The patient was started on broad-spectrum antibiotics. He was found to have MRSA sepsis. Urine culture was mixed gram-positive organisms. He continued to be febrile and he was seen by Dr. Tom Sidhu of Urology, who on 01/02/2020 performed extracorporeal shock wave lithotripsy combined with retrograde intrarenal surgery with laser and double-J stent placement and retrograde pyelogram. The patient tolerated the procedure well. Later in the hospitalization, the was removed without problem; however, because of the MRSA sepsis, Infectious Disease customer consultant, Dr. Womack recommended vancomycin IV and because of poor IV access, a PICC catheter was placed. Recommendation was to continue the vancomycin until 01/18/2020. The patient also was given Rocephin during the hospitalization with history of pyuria and mixed organisms on culture. He was discharged to the [facility] in stable condition. PHYSICAL EXAMINATION: VITAL SIGNS: On the day of discharge, the patient was afebrile with stable vital signs. LUNGS: Clear. HEART: Regular rhythm. ABDOMEN: Soft, nontender. He had some scarring at the gastrostomy site. FINAL DIAGNOSES: 1. MRSA bacteremia. 2. Obstructive ureteral stone. 3. Urinary tract infection. 4. Inflammation at the site of the prior gastrostomy that was removed, which may be the source of MRSA sepsis. 5. History of prior CVA with dysarthria, aphasia, and gait disorder. 6. History of gastritis. 7. Anemia. DISCHARGE DISPOSITION: To the [facility] on diet as tolerated and medications per the discharge medication list. Followup by Dr. Rodrigues at the nursing facility. Clayton Rodrigues M.D. DR: Juan Daniel JOB#: [id number] CC:
== END 2020-01-11 14:30 | DRG 710 ==
LOC: EDBD 20:29 → EMR 22:40 → 4E 23:30 → EDBEDREQ 23:57
DX: A41.02 Sepsis due to Methicillin resistant Staphylococcus aureus (principal); N13.2 Hydronephrosis with renal and ureteral calculous obstruction; N39.0 Urinary tract infection, site not specified; N17.9 Acute kidney failure, unspecified; I12.9 Hypertensive chronic kidney disease with stage 1 through stage 4 chronic kidney disease, or unspecified chronic kidney disease; N18.3 Chronic kidney disease, stage 3 (moderate); I69.328 Other speech and language deficits following cerebral infarction; N40.0 Benign prostatic hyperplasia without lower urinary tract symptoms; K21.9 Gastro-esophageal reflux disease without esophagitis; K94.22 Gastrostomy infection
CPT/HCPCS: 36415; 36569; 71045; 74176; 76937; 80048; 80053; 80202; 81003; 82248; 82550; 82553; 82728; 83540; 83550; 83605; 84484; 85007; 85025; 86710; 87040; 87081; 87086; 87181; 93005; 93306; 94003; 94150; 96361; 96365; 96375; 99285; J2250; J2405; J7030; J8499